=== PATIENT | male | born 1975 | race Caucasian/White ===

== ENCOUNTER 2023-10-05 15:51 | Outpatient (AMB) | payer OTHER, SELFPAY ==
[2023-10-05 16:05] VITALS: BP 152/86; PULSE 110; O2SAT 98; BMI 30.3
--- NOTE | 2023-10-05 16:05 | MHC.PC.OV ---
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 Transferring care from Dr. Gerardo Chung. Medical records have been requested today. 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 Previous PCP was Dr. Jin. Has a past medical history significant for hyperlipidemia, type 2 diabetes. Has a previous history of alcohol use disorder. Has been in treatment and has been sober since last year- 2022. .. Concern--> reports having chest tightness and wheeze when running or doing physical activity. He has not formally been diagnosed with asthma. 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 1. Little interest or pleasure in doing things: not at all 2. Feeling down, depressed, or hopeless: not at all 3. Trouble falling or staying asleep, or sleeping too much: not at all 4. Feeling tired or having little energy: not at all 5. Poor appetite or overeating: not at all 6. Feeling bad about yourself - or that you are a failure or have let yourself or your family down: not at all 7. Trouble concentrating on things, such as reading the newspaper or watching television: not at all 8. Moving or speaking so slowly that other people could have noticed. Or the opposite - being so fidgety or restless that you have been moving around a lot more than usual: not at all 9. Thoughts that you would be better off or of hurting yourself in some way: not at all Total score: 0 Depression Screening Interpretation: Negative Depression Screening Done: Yes 33554 - PHQ-9 Billing: Yes Source: Developed by Drs. Hema Olea, Vanita Blake, Devon Magdaleno and colleagues, with an educational waylon from [employer]. Thrive Questionnaire Date Thrive assessed: 10/05/23 I am a: Patient What is your living situation today?: I have a steady place to live Within the past 12 months, did the food you bought not last and you didn't have the money to get more?: Never true Within the past 12 months, did you worry whether your food would run out before you got money to buy more?: Never true Do you have trouble paying for medicines?: No Do you have trouble getting transportation to medical appointments?: No Do you have trouble paying your heating and electricity bill?: No Do you have trouble taking care of your child, family member or friend?: No Do you have trouble with day-to-day activities such as bathing, preparing meals, shopping, managing finances, etc.?: No Are you currently unemployed and looking for a job?: No Are you interested in more education?: No Please select the resources that you would like help with: None Currently or been in a relationship where the following occur: no concerns reported THRIVE Score: 0 AUDIT C Alcohol Use Questionnaire (AUDIT-C) 1. How often do you have a drink containing alcohol?: Never 3. How often do you have six or more drinks on one occasion?: Never Total Score: 0 THEODORE-7 AMB Questionnaire THEODORE-7 Date THEODORE - 7 assessed: 10/05/23 Feeling nervous, anxious, or on edge: 0 = Not at all Not being able to stop or control worryin = Not at all Worrying too much about different things: 0 = Not at all Trouble relaxin = Not at all Being so restless that it is hard to sit still: 0 = Not at all Becoming easily annoyed or irritable: 0 = Not at all Feeling afraid as if something awful might happen: 0 = Not at all Total THEODORE-7 score (0-4 normal; 5-9 mild; 10-14 moderate; 15-21 severe): 0 Source: Developed by Drs. Hema Olea, Vanita Blake, Devon Magdaleno and colleagues, with an educational waylon from [employer]. THEODORE-7 Assessment Billing THEODORE-7 Assessment Tool: THEODORE-7 Assessment 12167 ACT Questionnaire In the past 4 weeks, how much of the time did your asthma keep you from getting as much done at work, school or at home?: None of the time During the past 4 weeks, how often have you had shortness of breath?: Not at all During the past 4 weeks, how often did your asthma symptoms wake you up at night or earlier than usual in the morning?: Not at all During the past 4 weeks, how often have you had to use your rescue inhaler or nebulizer medication?: Not at all How would you rate your asthma control during the past 4 weeks?: Completely controlled ACT Interpretation: Negative Score: 25 Review of Systems Const Denies headache(s) Eyes Denies loss of vision ENT Denies vertigo, Denies dizziness, Denies headache(s) and Denies sore throat Card Denies chest pain, Denies leg edema and Denies lightheadedness Resp Denies cough, Denies hemoptysis and Denies wheezing GI Denies abdominal pain, Denies melena, Denies constipation, Denies diarrhea and Denies vomiting Denies dysuria, Denies urinary frequency and Denies urinary urgency Musc Denies arthralgias, Denies joint swelling, Denies numbness and Denies tingling Neuro Denies Abnormal speech present, Denies behavioral changes, Denies vertigo, Denies dizziness, Denies headache(s), Denies loss of vision, Denies memory loss, Denies numbness and Denies tingling Psych Denies anxiety, Denies behavioral changes, Denies depression, Denies memory loss and Denies panic attacks Dane/Lymph Denies easy bleeding and Denies easy bruising Aller/Immun Denies wheezing Physical exam (Primary Care) Vital Signs: Last Vital Signs Pulse 110 H 10/05/23 16:05 BP 152/86 H 10/05/23 16:05 Pulse Ox 98 10/05/23 16:05 Oxygen Delivery Method Room Air 10/05/23 16:05 BMI result Body Mass Index 30.3 Tobacco/Smoking Status: Tobacco use Status Tobacco use date assessed 10/05/23 10/05/23 16:12 Patient Tobacco Use Status Never used Tobacco 10/05/23 16:23 e-Cigarette/Vaping Use Never Used 10/05/23 16:23 PHQ-9: PHQ-9 Score PHQ-9: Total score 0 10/05/23 16:18 Depression Screening Interpretation: Negative Thrive Assessment: Date of Thrive Assessment Date Thrive assessed 10/05/23 10/05/23 16:12 Currently or been in a relationship where the following occur: no concerns reported Const General: healthy appearing, no acute distress, alert and awake Nutritional Appearance: well nourished Orientation/consciousness: oriented to person, oriented to place and oriented to time HENMT Ears: TM's normal bilaterally General nose exam: Normal nasal mucous membranes and turbinates present Eyes Conjunctivae: conjunctivae normal Sclerae: sclerae normal Pupils: Equal, round and reactive pupils present Neck Neck: Yes no lymphadenopathy and Yes no JVD Thyroid: Thyroid normal Carotids: no bruits Resp Effort & Inspection: normal respiratory effort and not tachypneic Auscultation: no crackles, no rales, no rhonchi and no wheezes Cardio Rate: regular rate Rhythm: regular rhythm Heart sounds: no murmurs and normal S1 and S2 GI Palpation (GI): Soft to palpation, nontender, no hepatomegaly and no splenomegaly Auscultation: normal bowel sounds Skin General skin exam: no rashes or lesions noted and dry skin Neuro General: oriented to person, oriented to place and oriented to time Cranial nerves: Yes Equal, round and reactive pupils present Speech: No Abnormal speech present Gait exam (Neuro): Normal gait present Motor exam (neuro): no tremor noted Extrem Right upper extremity: full ROM Left upper extremity: full ROM Right lower extremity: full ROM; no edema Left lower extremity: full ROM; no edema Psych Mental Status: mental status grossly normal Speech and movement: Normal speech and movement present Affect: normal affect Attitude: cooperative Thought process: Normal thought process present Assessment and Plan Assessment & Plan (1) HTN (hypertension): Code(s): I10 - Essential (primary) hypertension Qualifiers: Hypertension type: primary hypertension Qualified Code(s): I10 - Essential (primary) hypertension Plan: Patient's blood pressure elevated today in office. Has had elevated blood pressures at other occasions. Not interested in starting blood pressure medication at this time. Will monitor blood pressure at home for the next few months and if still elevated will consider starting hydrochlorothiazide. Goal blood pressures to be below 140/90 (2) HLD (hyperlipidemia): Code(s): E78.5 - Hyperlipidemia, unspecified Qualifiers: Hyperlipidemia type: mixed hyperlipidemia Qualified Code(s): E78.2 - Mixed hyperlipidemia Plan: Labs from 2019 showing elevated total cholesterol and LDL. Will recheck fasting lipid panel to assure stable total cholesterol and LDL. 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 Will recheck A1c to evaluate for diabetes. Will consider starting metformin. (4) Asthma: Code(s): J45.909 - Unspecified asthma, uncomplicated Qualifiers: Asthma complication type: uncomplicated Asthma persistence: intermittent Asthma severity: mild Qualified Code(s): J45.20 - Mild intermittent asthma, uncomplicated Plan: Patient does report wheezing during activity. Likely has sinus induced bronchospasm. Will supply patient with albuterol (5) History of alcohol use disorder: Code(s): Z87.898 - Personal history of other specified conditions Plan: As per HPI reports he has been sober for an alcohol since 2022. Has been in treatment recently Orders: Orders Comprehensive [place]. Panel Fast 10/05/23 I10 - Essential (primary) hypertension Lipid Panel 10/05/23 I10 - Essential (primary) hypertension Hemoglobin A1c 10/05/23 E11.9 - Type 2 diabetes mellitus without complications Microalbumin, Random (w Creat) 10/05/23 I10 - Essential (primary) hypertension Medications: New blood pressure monitor As directed 1 ea 0RF I10 - Essential (primary) hypertension albuterol sulfate 90 mcg/actuation (Ventolin HFA) 1 inh inhalation QID 30 days 8.5 grams 1RF J45.20 - Mild intermittent asthma, uncomplicated Coding Level of Care Code New Pt Level 4 (59902) Diagnoses Primary hypertension I10 Hypertension type: primary hypertension Mixed hyperlipidemia E78.2 Hyperlipidemia type: mixed hyperlipidemia Type 2 diabetes mellitus without complication, without long-term current use of insulin E11.9 Diabetes mellitus complication status: without complication Diabetes mellitus assisted insulin use: without termite control service representative use Mild intermittent asthma without complication J45.20 Asthma complication type: uncomplicated Asthma persistence: intermittent Asthma severity: mild History of alcohol use disorder Z87.898 Additional Codes THEODORE-7 Assessment Billing - THEODORE-7 Assessment Tool: THEODORE-7 Assessment [id number] ([id number])
== END 2023-10-05 16:36 | disposition home or self-care (01) ==
PROVIDERS: PCP Physician Assistant; Visit Provider Physician Assistant
DX: I10 Essential (primary) hypertension (principal); E78.2 Mixed hyperlipidemia; E11.9 Type 2 diabetes mellitus without complications; J45.20 Mild intermittent asthma, uncomplicated; Z87.898 Personal history of other specified conditions
CPT/HCPCS: 99204

== ENCOUNTER 2023-10-14 07:38 | Outpatient (REF) | payer OTHER, SELFPAY ==
[2023-10-14 11:52] LABS: Estimated Average Glucose 301 mg/dL; Hemoglobin A1c % 12.1 % (<6.0)
[2023-10-14 12:07] LABS: Creatinine Urine 66.54 mg/dL; Microalbum/Creatinine Ratio Ur 19.5 ug/mg cr (<30)
[2023-10-14 12:11] LABS: Alanine Aminotransferase 53 U/L (0-40); Albumin Level 4.4 g/dL (3.5-5.0); Alkaline Phosphatase 129 U/L (39-117); Anion Gap 13 (12-20); Aspartate Amino Transferase 17 U/L (5-37); Bilirubin Total 1.1 mg/dL (0.0-1.0); Blood Urea Nitrogen 13 mg/dL (9-16); Calcium 9.6 mg/dL (8.4-10.2); Carbon Dioxide 25 mmol/L (22-29); Chloride 102 mmol/L (96-108); Cholesterol 282 mg/dL (<200); Estimated Glomerular Filt Rate > 60; Glucose Fasting 351 mg/dL (60-99); HDL Cholesterol 40 mg/dL (>40); Potassium 3.8 mmol/L (3.3-5.1); Sodium 136 mmol/L (135-145); Total Protein 7.6 g/dL (6.5-8.0); Triglycerides 431 mg/dL (<150)
== END 2023-10-14 07:39 | disposition home or self-care (01) ==
LOC: HO.HMGCLDS 07:38
PROVIDERS: PCP Physician Assistant; Visit Provider Physician Assistant
DX: I10 Essential (primary) hypertension (principal); E11.9 Type 2 diabetes mellitus without complications
CPT/HCPCS: 36415; 80053; 80061; 82043; 82570; 83036

== ENCOUNTER 2023-12-05 14:18 | Outpatient (AMB) | payer OTHER, SELFPAY ==
--- NOTE | 2023-12-05 14:31 | A.OFFPC_ITS ---
Vital Signs 12/05/23 14:39 Height 6 ft 1 in Weight 227 lb BMI 29.9 BP 142/88 H Blood Pressure Location Lt brachial Position Sitting Respiration 17 Pulse 88 Pulse Source Pulse Oximeter Pulse Oximetry (%) 99 Oxygen Delivery Method Room Air Intake Visit Reasons: PE Intake Note: Patient is here today for a physical. Relay Associate Required: No Accompanied by: Self / Same As Patient Allergies No Known Allergies Allergy (Mild, Verified 12/05/23 14:45) N/A Medication List - Last Reconciled 12/05/23 by Reji Dior PA-C albuterol sulfate 90 mcg/actuation 1 inh inhalation QID PRN 30 days blood pressure monitor As directed metformin 500 mg PO BID 30 days Tobacco use date assessed: 10/05/23 Dental Screening Dental Screen Date: 10/05/23 HPI PE HPI Details Patient is a 48 year male here today for an annual physical. Patient has a past medical history significant for type 2 diabetes, asthma, hyperlipidemia, and history of alcohol use disorder. Concern--> reports having an issue with left-sided sciatica has been referred to physical therapy by the [facility] and will start pretty soon. Also does have right posterior shoulder pain with certain movements. He will ask Physical therapy to see him for his right shoulder as well. Type 2 diabetes: Recently found to have elevated fasting blood sugar and A1c. Was started on metformin 500 b.i.d.. He has received a glucometer from the [facility]. He has spoken with a diabetic counselor whom recommended getting a THEODORE test and start using a glucometer. PLAN: Will start monitoring blood sugars on a daily basis. Will implement a diabetic diet. Will continue metformin 500 BID .. Hyperlipidemia: Most recent lipid panel showing very elevated total cholesterol and triglycerides. Will recheck fasting lipids and if LDL above 100 will advised to start statin therapy. .. Hypertension: Blood pressure remains elevated today in office. Home blood pressures continue to be elevated as well 140s 150 systolic. PLAN: Will start lisinopril for blood pressure control and renal protection. .. Colon cancer screening: Goes to [facility]- did FIT testing and awaiting results. Considering colonoscopy Vaccines: Up-to-date with COVID vaccine, pneumonia vaccine, Needs Tdap Laboratory Tests 09/07/18 09/07/18 10/14/23 11:41 11:41 07:46 Fasting Glucose 136 H 351 H* Hemoglobin A1c 7.2 ALT 53 H Triglycerides 299 Cholesterol 315 282 H LDL Cholesterol, C alc 216 PFSH Surgical History S/P repair of inguinal hernia Social History (Updated 12/05/23 @ 14:49 by Reji Dior PA-C) Housing: House Alcohol intake: former Year quit: 2022 Patient Tobacco Use Status: Never used Tobacco e-Cigarette/Vaping Use: Never Used service: Yes ([employer] [employer]) Current occupational status: employed 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 Hema Olea, Vanita Blake, Devon Magdaleno and colleagues, with an educational waylon from [employer]. ACT Questionnaire In the past 4 weeks, how much of the time did your asthma keep you from getting as much done at work, school or at home?: None of the time During the past 4 weeks, how often have you had shortness of breath?: Not at all During the past 4 weeks, how often did your asthma symptoms wake you up at night or earlier than usual in the morning?: Not at all During the past 4 weeks, how often have you had to use your rescue inhaler or nebulizer medication?: Once a week or less How would you rate your asthma control during the past 4 weeks?: Well controlled ACT Interpretation: Negative Score: 23 Review of Systems Const Denies body aches, Denies chills, Denies excessive sweating, Denies fatigue, Denies fever(s) and Denies headache(s) Eyes Denies blurry vision ENT Denies dysphagia, Denies vertigo, Denies dizziness, Denies headache(s), Denies hearing loss and Denies tinnitus Card Denies chest pain, Denies chest pain with activity, Denies syncope, Denies irregular heart rhythm and Denies dyspnea Resp Denies chest congestion, Denies cough, Denies hemoptysis, Denies dyspnea and Denies wheezing GI Denies abdominal pain, Denies melena, Denies hematochezia, Denies coffee ground emesis, Denies dysphagia, Denies diarrhea, Denies nausea and Denies vomiting Denies difficulty urinating, Denies dysuria, Denies urinary frequency, Denies urinary hesitancy and Denies urinary urgency Musc Denies arthralgias, Denies limited range of motion, Denies muscle cramps and Denies muscle weakness Skin/Breast Denies rash and Denies skin ulcer Neuro Denies Abnormal speech present, Denies confusion, Denies vertigo, Denies dizziness, Denies syncope, Denies headache(s), Denies memory loss and Denies s eizure-like activity Psych Denies anxiety, Denies confusion, Denies depression, Denies memory loss, Denies panic attacks and Denies paranoia Endo Denies excessive sweating, Denies fatigue, Denies flushing, Denies polydipsia and Denies polyuria Aller/Immun Denies wheezing Physical exam (Primary Care) Vital Signs: Last Vital Signs Pulse 88 12/05/23 14:39 Resp 17 12/05/23 14:39 BP 142/88 H 12/05/23 14:39 Pulse Ox 99 12/05/23 14:39 Oxygen Delivery Method Room Air 12/05/23 14:39 BMI result Body Mass Index 29.9 Tobacco/Smoking Status: Tobacco use Status Tobacco use date assessed 10/05/23 12/05/23 14:33 Patient Tobacco Use Status Never used Tobacco 12/05/23 14:49 e-Cigarette/Vaping Use Never Used 12/05/23 14:49 Thrive Assessment: Date of Thrive Assessment Date Thrive assessed 10/05/23 12/05/23 14:33 Const General: cooperative, comfortable, no acute distress, alert and awake; No confusion Orientation/consciousness: oriented to person, oriented to place, patient oriented x3 and No confusion HENMT Head: Yes normocephalic Ears: external ears normal and TM's normal bilaterally Face and sinus: No sinus tenderness Mouth: Normal oral and palatal mucosa present and tongue normal Teeth and gingiva: dentition normal and gingiva normal Throat: Yes posterior oropharynx normal, Yes tonsils normal and Yes uvula midline Eyes Conjunctivae: conjunctivae normal Sclerae: sclerae normal Pupils: Equal, round and reactive pupils present EOM: EOMs intact bilaterally Direct Ophthalmoscopy: No no photophobia Neck Neck: Yes no lymphadenopathy, No tender and Yes no JVD Thyroid: Thyroid normal Carotids: no bruits Chest Chest palpation & inspection: no tenderness Resp Effort & Inspection: normal respiratory effort, no audible wheezes, not labored and no stridor Auscultation: no crackles, no rales, no rhonchi and no wheezes Cardio Jugular venous distension: no JVD Rate: regular rate, not bradycardic and not tachycardic Rhythm: regular rhythm Bruits: no carotid bruits Peripheral pulses: Peripheral pulses 2+ throughout GI Inspection: Yes normal to inspection, No abdominal wall ecchymosis and No visible herniation Palpation (GI): Soft to palpation, nontender, no guarding, not rigid and No hepatosplenomegaly present Auscultation: normoactive bowel sounds General: Yes no CVA tenderness Back/Spine/Pelvis Back: no CVA tenderness and No back tenderness Cervical Spine: cervical ROM normal Thoracic/Lumbar Spine: thoracic and lumbar spine normal to inspection, straight leg raise negative bilaterally, No thoraco-lumbar ROM limited and No lumbar spinal tenderness Skin Lesions: no lesions Rashes: no rashes Wounds: no wounds Neuro General: oriented to person, oriented to place, patient oriented x3, CN's II-XI intact bilaterally and No confusion Cranial nerves: Yes Equal, round and reactive pupils present and Yes Normal accommodation reflex present Cognition (Neuro): normal cognition Speech: No Abnormal speech present Gait exam (Neuro): Normal gait present Motor exam (neuro): 5/5 motor strength present throughout Extrem Right upper extremity: full ROM; no cyanosis Left upper extremity: full ROM; no cyanosis Right lower extremity: no edema Left lower extremity: no edema Psych Appearance: grossly normal Mental Status: mental status grossly normal Affect: normal affect Attitude: cooperative Thought process: Normal thought process present Immunizations Boostrix Tdap 2.5 Lf unit-8 mcg-5 Lf/0.5 mL intramuscular syringe Performing Provider: Reji Dior PA-C Performing Location: [facility] Administered by: YUE oRberts on 12/05/23 15:11 Dose Route Admin Location Dispensed Lot Number Expiration Date NDC Treasury Specialist 0.5 mL IM Left Deltoid 0.5 mL [id number] 01/07/26 03501-573-86 [employer] VIS Given Date VIS Provided VIS Publication Date 12/05/23 Single Vaccine 21 Eligibility Eligibility Date Funding Source Not VFC Eligible 12/05/23 Private Assessment and Plan Assessment & Plan (1) Annual physical exam: Code(s): Z00.00 - Encounter for general adult medical examination without abnormal findings (2) DMII (diabetes mellitus, type 2): Code(s): E11.9 - Type 2 diabetes mellitus without complications Qualifiers: Diabetes mellitus complication status: without complication Diabetes mellitus manager gallery insulin use: without fci use Qualified Code(s): E11.9 - Type 2 diabetes mellitus without complications Plan: Patient has uncontrolled type 2 diabetes. Been started on metformin 500 b.i.d.. Has started using a glucometer check his blood sugars at home and reports a b lood sugar 190. Will recheck fasting labs and A1c before next visit in 3 months. Goal A1c is to be below 7.0 (3) HTN (hypertension): Code(s): I10 - Essential (primary) hypertension Qualifiers: Hypertension type: primary hypertension Qualified Code(s): I10 - Essential (primary) hypertension Plan: Patient's blood pressure elevated today in office. At home blood pressures 140s to 150 systolic. Will start lisinopril 5 mg for renal protection and blood pressure control. Goal blood pressures to be below 140/90. (4) HLD (hyperlipidemia): Code(s): E78.5 - Hyperlipidemia, unspecified Qualifiers: Hyperlipidemia type: mixed hyperlipidemia Qualified Code(s): E78.2 - Mixed hyperlipidemia Plan: Most recent lipid panel showing elevated total cholesterol and triglycerides. LDL was not calculated. Will recheck lipid panel in the next 3 months. LDL is to be below 100. (5) Sciatica: Code(s): M54.30 - Sciatica, unspecified side Qualifiers: Laterality: left Qualified Code(s): M54.32 - Sciatica, left side Plan: Will be starting physical therapy soon. (6) Tendinopathy of right shoulder: Code(s): M67.911 - Unspecified disorder of synovium and tendon, right shoulder Plan: Reports injuring his right shoulder months ago and does report posterior right shoulder pain depending on what moving sees doing with his right shoulder. He will ask Physical therapy on treatment for this (7) Asthma: Code(s): J45.909 - Unspecified asthma, uncomplicated Qualifiers: Asthma severity: mild Asthma persistence: intermittent Asthma complication type: uncomplicated Qualified Code(s): J45.20 - Mild intermittent asthma, uncomplicated Plan: Patient reports his asthma is fairly well controlled with only p.r.n. use of his albuterol inhaler. Does use his albuterol inhaler before physical activity as he has mostly exercise-induced asthma. Orders: Orders Lipid Panel 12/05/23 E78.2 - Mixed hyperlipidemia Glutamic acid decarboxylase Ab 12/05/23 E11.9 - Type 2 diabetes mellitus without complications TDaP Immunization 12/05/23 E11.9 - Type 2 diabetes mellitus without complications, Z23 - Encounter for immunization TSH reflex Free T4 12/05/23 E78.2 - Mixed hyperlipidemia Comprehensive [place]. Panel Fast 12/05/23 E11.9 - Type 2 diabetes mellitus without complications Hemoglobin A1c 12/05/23 E11.9 - Type 2 diabetes mellitus without complications Microalbumin, Random (w Creat) 12/05/23 I10 - Essential (primary) hypertension Medications: New lisinopril 5 mg PO DAILY 90 days 90 tabs 1RF I10 - Essential (primary) hypertension Coding Level of Care Code Est Pt Prev Care 40-64y(22803) Diagnoses Annual physical exam Z00.00 Type 2 diabetes mellitus without complication, without long-term current use of insulin E11.9 Diabetes mellitus complication status: without complication Diabetes mellitus manager gallery insulin use: without manager gallery use Primary hypertension I10 Hypertension type: primary hypertension Mixed hyperlipidemia E78.2 Hyperlipidemia type: mixed hyperlipidemia Sciatica of left side M54.32 Laterality: left Tendinopathy of right shoulder M67.911 Mild intermittent asthma without complication J45.20 Asthma severity: mild Asthma persistence: intermittent Asthma complication type: uncomplicated
[2023-12-05 14:39] VITALS: BP 142/88; PULSE 88; RESP 17; O2SAT 99; BMI 29.9
== END 2023-12-05 15:08 | disposition home or self-care (01) ==
PROVIDERS: PCP Physician Assistant; Visit Provider Physician Assistant
DX: Z23 Encounter for immunization (principal); E11.9 Type 2 diabetes mellitus without complications
CPT/HCPCS: 90471; 90715; 99396

== ENCOUNTER 2024-03-03 07:19 | Outpatient (REF) | payer OTHER, SELFPAY ==
[2024-03-03 11:33] LABS: Estimated Average Glucose 186 mg/dL; Hemoglobin A1c % 8.1 % (<6.0)
[2024-03-03 11:45] LABS: Alanine Aminotransferase 57 U/L (0-40); Albumin Level 4.3 g/dL (3.5-5.0); Alkaline Phosphatase 85 U/L (39-117); Anion Gap 11 (12-20); Aspartate Amino Transferase 21 U/L (5-37); Bilirubin Total 1.6 mg/dL (0.0-1.0); Blood Urea Nitrogen 11 mg/dL (9-16); Calcium 9.4 mg/dL (8.4-10.2); Carbon Dioxide 27 mmol/L (22-29); Chloride 104 mmol/L (96-108); Cholesterol 218 mg/dL (<200); Estimated Glomerular Filt Rate > 60; Glucose Fasting 217 mg/dL (60-99); HDL Cholesterol 45 mg/dL (>40); LDL Cholesterol Calculated 134 mg/dL (<100); Potassium 4.3 mmol/L (3.3-5.1); Sodium 138 mmol/L (135-145); Total Protein 6.9 g/dL (6.5-8.0); Triglycerides 197 mg/dL (<150)
[2024-03-03 11:52] LABS: Microalbumin Urine < 5.0 mg/L
[2024-03-03 12:08] LABS: TSH reflex Free T4 0.88 uIU/mL (0.32-4.0)
[2024-03-07 16:18] LABS: Glutamic acid decarboxylase Ab <5 IU/mL (<5)
== END 2024-03-03 07:20 | disposition home or self-care (01) ==
LOC: HO.HMGCLDS 07:19
PROVIDERS: PCP Physician Assistant; Visit Provider Physician Assistant
DX: E78.2 Mixed hyperlipidemia (principal); E11.9 Type 2 diabetes mellitus without complications; I10 Essential (primary) hypertension
CPT/HCPCS: 36415; 80053; 80061; 82570; 83036; 84443; 86341

== ENCOUNTER 2024-03-06 08:39 | Outpatient (AMB) | payer OTHER, SELFPAY ==
--- NOTE | 2024-03-06 08:48 | A.OFFPC_ITS ---
Vital Signs 03/06/24 08:50 Height 6 ft 1 in Weight 228 lb 4 oz BMI 30.1 BP 112/82 Blood Pressure Location Lt brachial Position Sitting Pulse 83 Pulse Source Pulse Oximeter Pulse Oximetry (%) 98 Oxygen Delivery Method Room Air Intake Visit Reasons: f/u DMII Intake Note: Patient is here to follow up on DM HTN. Pattern Fitter Required: No Carbonizer: Not Required per policy Accompanied by: Self / Same As Patient Allergies No Known Allergies Allergy (Mild, Verified 03/06/24 08:57) N/A Medication List - Last Reconciled 03/06/24 by Reji Dior PA-C albuterol sulfate 90 mcg/actuation 1 inh inhalation QID PRN 30 days blood pressure monitor As directed lisinopril 5 mg PO DAILY 90 days metformin 500 mg PO BID 30 days Tobacco use date assessed: 03/06/24 Dental Screening Dental Screen Date: 10/05/23 HPI f/u DMII HPI Details Patient is a 48 year male here today for follow-up visit. Patient has a past medical history significant for type 2 diabetes, asthma, hyperlipidemia, and history of alcohol use disorder Type 2 diabetes: Most recent A1c at 8.1. Continues on metformin 500 b.i.d. [facility] He has spoken with a diabetic counselor whom recommended getting a THEODORE test and start using a glucometer. PLAN: Will continue to try to be more adherent with afternoon dose of m etformin. .. Hyperlipidemia: Most recent lipid panel showing much improved total cholesterol and LDL. Unfortunately LDL remains above 100. Will start low-dose statin therapy. .. Hypertension: Blood pressure much improved today in office. Continue current dose of lisinopril. 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 Hema Olea, Vanita Blake, Devon Magdaleno and colleagues, with an educational waylon from [employer]. Review of Systems Const Denies headache(s) Eyes Denies loss of vision ENT Denies vertigo, Denies dizziness, Denies headache(s) and Denies sore throat Card Denies chest pain, Denies leg edema and Denies lightheadedness Resp Denies cough, Denies hemoptysis and Denies wheezing GI Denies abdominal pain, Denies melena, Denies constipation, Denies diarrhea and Denies vomiting Denies dysuria, Denies urinary frequency and Denies urinary urgency Musc Denies arthralgias, Denies joint swelling, Denies numbness and Denies tingling Neuro Denies Abnormal speech present, Denies behavioral changes, Denies vertigo, Denies dizziness, Denies headache(s), Denies loss of vision, Denies memory loss, Denies numbness and Denies tingling Psych Denies anxiety, Denies behavioral changes, Denies depression, Denies memory loss and Denies panic attacks Dane/Lymph Denies easy bleeding and Denies easy bruising Aller/Immun Denies wheezing Physical exam (Primary Care) Vital Signs: Last Vital Signs Pulse 83 03/06/24 08:50 BP 112/82 03/06/24 08:50 Pulse Ox 98 03/06/24 08:50 Oxygen Delivery Method Room Air 03/06/24 08:50 BMI result Body Mass Index 30.1 Tobacco/Smoking Status: Tobacco use Status Tobacco use date assessed 03/06/24 03/06/24 08:54 Patient Tobacco Use Status Never used Tobacco 03/06/24 08:54 e-Cigarette/Vaping Use Never Used 03/06/24 08:54 Thrive Assessment: Date of Thrive Assessment Date Thrive assessed 10/05/23 03/06/24 08:54 Const General: healthy appearing, no acute distress, alert and awake Nutritional Appearance: well nourished Orientation/consciousness: oriented to person, oriented to place and oriented to time HENMT Ears: TM's normal bilaterally General nose exam: Normal nasal mucous membranes and turbinates present Eyes Conjunctivae: conjunctivae normal Sclerae: sclerae normal Pupils: Equal, round and reactive pupils present Neck Neck: Yes no lymphadenopathy and Yes no JVD Thyroid: Thyroid normal Carotids: no bruits Resp Effort & Inspection: normal respiratory effort and not tachypneic Auscultation: no crackles, no rales, no rhonchi and no wheezes Cardio Rate: regular rate Rhythm: regular rhythm Heart sounds: no murmurs and normal S1 and S2 GI Palpation (GI): Soft to palpation, nontender, no hepatomegaly and no splenomegaly Auscultation: normal bowel sounds Skin General skin exam: no rashes or lesions noted and dry skin Neuro General: oriented to person, oriented to place and oriented to time Cranial nerves: Yes Equal, round and reactive pupils present Speech: No Abnormal speech present Gait exam (Neuro): Normal gait present Motor exam (neuro): no tremor noted Extrem Right upper extremity: full ROM Left upper extremity: full ROM Right lower extremity: full ROM; no edema Left lower extremity: full ROM; no edema Psych Mental Status: mental status grossly normal Speech and movement: Normal speech and movement present Affect: normal affect Attitude: cooperative Thought process: Normal thought process present Assessment and Plan Assessment & Plan (1) DMII (diabetes mellitus, type 2): Code(s): E11.9 - Type 2 diabetes mellitus without complications Qualifiers: Diabetes mellitus supervisor intermediates insulin use: without supervisor intermediates use Diabetes mellitus complication status: without complication Qualified Code(s): E11.9 - Type 2 diabetes mellitus without complications Plan: Patient has suboptimally controlled, though A1c much improved at 8.1 from 12.1. Continues on metformin 500 b.i.d.. Has started using a glucometer check his blood sugars at home and reports a blood sugar 190. He does report often missing his afternoon dose of metformin. Will recheck fasting labs and A1c before next visit in 3 months. Goal A1c is to be below 7.0 (2) HTN (hypertension): Code(s): I10 - Essential (primary) hypertension Qualifiers: Hypertension type: primary hypertension Qualified Code(s): I10 - Essential (primary) hypertension Plan: Blood pressure much improved today in office. Continues on lisinopril 5 mg daily l. Goal blood pressures to be below 140/90. (3) HLD (hyperlipidemia): Code(s): E78.5 - Hyperlipidemia, unspecified Qualifiers: Hyperlipidemia type: mixed hyperlipidemia Qualified Code(s): E78.2 - Mixed hyperlipidemia Plan: Most recent fasting lipid panel showing much improved total cholesterol and LDL. LDL still above 100 thus will start low-dose simvastatin 5 mg for goal LDL to be below 100. Will recheck lipid panel in the next 3 months. Orders: Orders Complete Blood Count no Diff 3 Months E11.9 - Type 2 diabetes mellitus without complications Lipid Panel 3 Months E78.2 - Mixed hyperlipidemia Comprehensive [place]. Panel Fast 3 Months E11.9 - Type 2 diabetes mellitus without complications Medications: New simvastatin 5 mg PO DAILY 90 days 90 tabs 1RF E78.2 - Mixed hyperlipidemia Patient Instructions: Goal: A1c to be below 7.0, LDL to be below 100, blood pressure to be below 140/90 Barriers: Adherence to medication and healthy eating habits. Coding Level of Care Code Est Pt Level 4 (79894) Complex EM visit Add On [id number] Diagnoses Type 2 diabetes mellitus without complication, without long-term current use of insulin E11.9 Diabetes mellitus supervisor intermediates insulin use: without supervisor intermediates use Diabetes mellitus complication status: without complication Primary hypertension I10 Hypertension type: primary hypertension Mixed hyperlipidemia E78.2 Hyperlipidemia type: mixed hyperlipidemia
[2024-03-06 08:50] VITALS: BP 112/82; PULSE 83; O2SAT 98; BMI 30.1
== END 2024-03-06 09:09 | disposition home or self-care (01) ==
PROVIDERS: PCP Physician Assistant; Visit Provider Physician Assistant
DX: E11.9 Type 2 diabetes mellitus without complications (principal); I10 Essential (primary) hypertension; E78.2 Mixed hyperlipidemia
CPT/HCPCS: 99214; G2211

== ENCOUNTER 2024-06-04 09:09 | Outpatient (REF) | payer OTHER, SELFPAY ==
[2024-06-04 10:35] LABS: Hematocrit 45.8 % (42.0-52.0); Hemoglobin 16.2 g/dl (14.0-18.0); Mean Corpuscular HGB Conc 35.4 g/dl (31.0-36.0); Mean Corpuscular Hemoglobin 31.6 pg (27.0-33.0); Mean Corpuscular Volume 89.3 fL (80.0-98.0); Mean Platelet Volume 9.6 fL (9.4-12.4); Platelet Count 281 X10*3/uL (160-400); Red Blood Count 5.13 X10*6/uL (4.60-5.80); Red Cell Distribution Width 11.6 % (11.0-16.0); White Blood Count 6.5 X10*3/uL (4.8-10.8)
[2024-06-04 11:13] LABS: Alanine Aminotransferase 50 U/L (0-40); Albumin Level 4.4 g/dL (3.5-5.0); Alkaline Phosphatase 100 U/L (39-117); Anion Gap 14 (12-20); Aspartate Amino Transferase 16 U/L (5-37); Bilirubin Total 1.2 mg/dL (0.0-1.0); Blood Urea Nitrogen 10 mg/dL (9-16); Calcium 9.2 mg/dL (8.4-10.2); Carbon Dioxide 26 mmol/L (22-29); Chloride 101 mmol/L (96-108); Cholesterol 281 mg/dL (<200); Estimated Glomerular Filt Rate > 60; Glucose Fasting 283 mg/dL (60-99); HDL Cholesterol 45 mg/dL (>40); Sodium 137 mmol/L (135-145); Total Protein 7.3 g/dL (6.5-8.0); Triglycerides 433 mg/dL (<150)
== END 2024-06-04 09:10 | disposition home or self-care (01) ==
LOC: HO.HMGCLDS 09:09
PROVIDERS: PCP Physician Assistant; Visit Provider Physician Assistant
DX: E78.2 Mixed hyperlipidemia (principal); E11.9 Type 2 diabetes mellitus without complications
CPT/HCPCS: 36415; 80053; 80061; 85027

== ENCOUNTER 2024-06-06 08:53 | Outpatient (AMB) | payer OTHER, SELFPAY ==
[2024-06-06 09:20] VITALS: BP 154/96; PULSE 82; O2SAT 98; BMI 30.8
--- NOTE | 2024-06-06 09:20 | A.OFFPC_ITS ---
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 Patient has a past medical history significant for type 2 diabetes, asthma, hyperlipidemia, and history of alcohol use disorder Type 2 diabetes: Today's when A1c elevated at 10.0 from 8.1 Continues on metformin 500 b.i.d. recent labs showing very elevated fasting blood sugar. HE ADMITS TO DIETARY INDISCRETION AND BEING MORE SEDENTARY OVER THE LAST FEW MONTHS. [facility] He has spoken with a diabetic counselor whom recommended getting a THEODORE test and start using a glucometer. PLAN: Will increase his metformin dose to a 1000 in the a.m. and continue 500 the p.m.. .. Hyperlipidemia: Most recent lipid panel showing elevated total cholesterol triglycerides.. Unfortunately LDL remains above 100. PLAN: Will increase his simvastatin dose to 10 mg .. Hypertension: Blood pressure much elevated today in office. He reports that home blood pressures are 120s to 130 systolic. Continue current dose of lisinopril. Laboratory Tests 09/07/18 10/14/23 03/03/24 11:41 07:46 07:30 RBC Hgb Fasting Glucose 351 H* 217 H Hemoglobin A1c % 12.1 H 8.1 H ALT 53 H 57 H Alkaline Phosphata se 129 H 85 LDL Cholesterol, C alc 216 134 H Triglycerides 197 H Cholesterol 282 H 218 H TSH 0.88 Urine Microalbumin < 5.0 06/04/24 09:18 RBC 5.13 Hgb 16.2 Fasting Glucose 283 H Hemoglobin A1c % ALT Alkaline Phosphata se LDL Cholesterol, C alc Triglycerides 433 H Cholesterol 281 H TSH Urine Microalbumin PFSH Surgical History S/P repair of inguinal hernia Social History Housing: House Alcohol intake: current Alcohol intake frequency: a few times a month Patient Tobacco Use Status: Never used Tobacco e-Cigarette/Vaping Use: Never Used Second Hand Smoke Exposure: No service: Yes ([employer]) Current occupational status: employed 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 1. Little interest or pleasure in doing things: not at all 2. Feeling down, depressed, or hopeless: not at all 3. Trouble falling or staying asleep, or sleeping too much: not at all 4. Feeling tired or having little energy: not at all 5. Poor appetite or overeating: not at all 6. Feeling bad about yourself - or that you are a failure or have let yourself or your family down: not at all 7. Trouble concentrating on things, such as reading the newspaper or watching television: not at all 8. Moving or speaking so slowly that other people could have noticed. Or the opposite - being so fidgety or restless that you have been moving around a lot more than usual: not at all 9. Thoughts that you would be better off or of hurting yourself in some way: not at all Total score: 0 Depression Screening Interpretation: Negative Depression Screening Done: Yes 73906 - PHQ-9 Billing: Yes Source: Developed by Drs. Hema Olea, Vanita Blake, Devon Magdaleno and colleagues, with an educational waylon from [employer]. Thrive Questionnaire Date Thrive assessed: 06/06/24 I am a: Patient What is your living situation today?: I have a steady place to live Within the past 12 months, did the food you bought not last and you didn't have the money to get more?: Never true Within the past 12 months, did you worry whether your food would run out before you got money to buy more?: Never true Do you have trouble paying for medicines?: No Do you have trouble getting transportation to medical appointments?: No Do you have trouble paying your heating and electricity bill?: No Do you have trouble taking care of your child, family member or friend?: No Do you have trouble with day-to-day activities such as bathing, preparing meals, shopping, managing finances, etc.?: No Are you currently unemployed and looking for a job?: No Are you interested in more education?: No Currently or been in a relationship where the following occur: No concerns reported THRIVE Score: 0 AUDIT C Alcohol Use Questionnaire (AUDIT-C) 1. How often do you have a drink containing alcohol?: Never 3. How often do you have six or more drinks on one occasion?: Never Total Score: 0 THEODORE-7 AMB Questionnaire THEODORE-7 Date THEODORE - 7 assessed: 06/06/24 Feeling nervous, anxious, or on edge: 0 = Not at all Not being able to stop or control worryin = Not at all Worrying too much about different things: 0 = Not at all Trouble relaxin = Not at all Being so restless that it is hard to sit still: 0 = Not at all Becoming easily annoyed or irritable: 0 = Not at all Feeling afraid as if something awful might happen: 0 = Not at all Total THEODORE-7 score (0-4 normal; 5-9 mild; 10-14 moderate; 15-21 severe): 0 Source: Developed by Drs. Hema Olea, Vanita Blake, Devon Magdaleno and colleagues, with an educational waylon from [employer]. THEODORE-7 Assessment Billing THEODORE-7 Assessment Tool: THEODORE-7 Assessment 38999 Review of Systems Const Denies headache(s) Eyes Denies loss of vision ENT Denies vertigo, Denies dizziness, Denies headache(s) and Denies sore throat Card Denies chest pain, Denies leg edema and Denies lightheadedness Resp Denies cough, Denies hemoptysis and Denies wheezing GI Denies abdominal pain, Denies melena, Denies constipation, Denies diarrhea and Denies vomiting Denies dysuria, Denies urinary frequency and Denies urinary urgency Musc Denies arthralgias, Denies joint swelling, Denies numbness and Denies tingling Neuro Denies Abnormal speech present, Denies behavioral changes, Denies vertigo, Denies dizziness, Denies headache(s), Denies loss of vision, Denies memory loss, Denies numbness and Denies tingling Psych Denies anxiety, Denies behavioral changes, Denies depression, Denies memory loss and Denies panic attacks Dane/Lymph Denies easy bleeding and Denies easy bruising Aller/Immun Denies wheezing Physical exam (Primary Care) Vital Signs: Last Vital Signs Pulse 82 06/06/24 09:20 BP 154/96 H 06/06/24 09:20 Pulse Ox 98 06/06/24 09:20 Oxygen Delivery Method Room Air 06/06/24 09:20 BMI result Body Mass Index 30.8 Tobacco/Smoking Status: Tobacco use Status Tobacco use date assessed 03/06/24 06/06/24 09:20 Patient Tobacco Use Status Never used Tobacco 06/06/24 09:20 e-Cigarette/Vaping Use Never Used 06/06/24 09:20 PHQ-9: PHQ-9 Score PHQ-9: Total score 0 06/06/24 09:23 Depression Screening Interpretation: Negative Thrive Assessment: Date of Thrive Assessment Date Thrive assessed 06/06/24 06/06/24 09:23 Currently or been in a relationship where the following occur: No concerns reported Const General: healthy appearing, no acute distress, alert and awake Nutritional Appearance: well nourished Orientation/consciousness: oriented to person, oriented to place and oriented to time HENAL Ears: TM's normal bilaterally General nose exam: Normal nasal mucous membranes and turbinates present Eyes Conjunctivae: conjunctivae normal Sclerae: sclerae normal Pupils: Equal, round and reactive pupils present Neck Neck: Yes no lymphadenopathy and Yes no JVD Thyroid: Thyroid normal Carotids: no bruits Resp Effort & Inspection: normal respiratory effort and not tachypneic Auscultation: no crackles, no rales, no rhonchi and no wheezes Cardio Rate: regular rate Rhythm: regular rhythm Heart sounds: no murmurs and normal S1 and S2 GI Palpation (GI): Soft to palpation, nontender, no hepatomegaly and no splenomegaly Auscultation: normal bowel sounds Skin General skin exam: no rashes or lesions noted and dry skin Neuro General: oriented to person, oriented to place and oriented to time Cranial nerves: Yes Equal, round and reactive pupils present Speech: No Abnormal speech present Gait exam (Neuro): Normal gait present Motor exam (neuro): no tremor noted Extrem Right upper extremity: full ROM Left upper extremity: full ROM Right lower extremity: full ROM; no edema Left lower extremity: full ROM; no edema Psych Mental Status: mental status grossly normal Speech and movement: Normal speech and movement present Affect: normal affect Attitude: cooperative Thought process: Normal thought process present Results AMB Hemoglobin A1c AMB Hemoglobin A1c 10.0 % Last Edit by YUE Roberts on 06/06/24 09:25 Results Reviewed Results Reviewed: Laboratory Last Values Hgb A1c (Clinic) 10.0 % (4.0-6.0) H 06/06/24 09:21 Coding Level of Care Code Est Pt Level 4 (59655) Diagnoses Type 2 diabetes mellitus without complication, without long-term current use of insulin E11.9 Diabetes mellitus complication status: without complication Diabetes mellitus senior care insulin use: without senior care use Primary hypertension I10 Hypertension type: primary hypertension Mixed hyperlipidemia E78.2 Hyperlipidemia type: mixed hyperlipidemia Additional Codes THEODORE-7 Assessment Billing - THEODORE-7 Assessment Tool: THEODORE-7 Assessment [id number] ([id number]) Assessment & Plan Assessment & Plan (1) DMII (diabetes mellitus, type 2): Code(s): E11.9 - Type 2 diabetes mellitus without complications Category: Medical Qualifiers: Diabetes mellitus complication status: without complication Diabetes mellitus intermediate card tender insulin use: without intermediate card tender use Qualified Code(s): E11.9 - Type 2 diabetes mellitus without complications Plan: Patient's type 2 diabetes not well controlled. Today's A1c elevated at 10 from 8.1. He reports dietary indiscretion and being more sedentary over last few months. Will increase metformin to a 1000 mg in the daytime and 500 at night. He will work on lifestyle modification. Goal A1c is to be below 7.0 (2) HTN (hypertension): Code(s): I10 - Essential (primary) hypertension Category: Medical Qualifiers: Hypertension type: primary hypertension Qualified Code(s): I10 - Essential (primary) hypertension Plan: Patient's blood pressure elevated today in office. He reports that home blood pressures are stable. He continues with lisinopril 5 mg daily. Goal blood pressures to remain below 140/90 (3) HLD (hyperlipidemia): Code(s): E78.5 - Hyperlipidemia, unspecified Category: Medical Qualifiers: Hyperlipidemia type: mixed hyperlipidemia Qualified Code(s): E78.2 - Mixed hyperlipidemia Plan: Patient's most recent lipid panel showing elevated total cholesterol and triglycerides. Will increase his simvastatin to 10 mg for better cholesterol control. He did admit to dietary indiscretion and will try to work on dietary modifications. Goal LDL is to be below 100 Orders: Orders Microalbumin, Random (w Creat) 4 Months I10 - Essential (primary) hypertension Comprehensive [place]. Panel Fast 4 Months I10 - Essential (primary) hypertension Hemoglobin A1c 4 Months E11.9 - Type 2 diabetes mellitus without complications AMB Hemoglobin A1c Today E11.9 - Type 2 diabetes mellitus without complications Lipid Panel 4 Months E78.2 - Mixed hyperlipidemia Complete Blood Count no Diff 4 Months I10 - Essential (primary) hypertension Referrals Ophthalmology Referral E11.9 - Type 2 diabetes mellitus without complications Medications: New simvastatin 10 mg PO DAILY 90 tabs 1RF 90 days E78.2 - Mixed hyperlipidemia Changed From metformin 500 mg PO BID 30 days 60 tabs 3RF E11.9 - Type 2 diabetes mellitus without complications To metformin 500 mg PO TID 90 tabs 3RF 30 days E11.9 - Type 2 diabetes mellitus without complications Discontinued simvastatin Discontinued Reason: Doctor's Order 5 mg PO DAILY 90 days 90 tabs 1RF E78 .2 - Mixed hyperlipidemia Patient Instructions: Goal: A1c to be below 7.0, LDL to be below 100 Barriers: Adherence to physical activity and healthy eating habits
== END 2024-06-06 09:36 | disposition home or self-care (01) ==
PROVIDERS: PCP Physician Assistant; Visit Provider Physician Assistant
DX: E11.9 Type 2 diabetes mellitus without complications (principal)

== ENCOUNTER → 2024-06-06 08:53 | Outpatient (BNVA) | payer OTHER, SELFPAY | PROVIDERS: PCP Physician Assistant; Visit Provider Physician Assistant | DX: E11.9 Type 2 diabetes mellitus without complications (principal); I10 Essential (primary) hypertension; E78.2 Mixed hyperlipidemia | CPT/HCPCS: 83036; 96127; 99212 ==

== ENCOUNTER 2024-12-05 07:48 | Outpatient (AMB) | payer OTHER, SELFPAY ==
--- OUTSIDE RECORDS SUMMARY | 2024-12-05 07:52 | XMS_ITS | Continuity of Care Document ---
Author Name [facility] Organization [facility] Care Team Providers [facility] Name Role Phone [facility] Unavailable Unavailable Problems Combined list of problems from Department of Defense and Veterans Affairs facilities. It does not include entries that were removed or entered in error. Problem Status Onset Date Problem Type Date of Resolution Comments Source Erectile dysfunction Active Condition [facility] Exercise induced asthma Active Condition [facility] Exposure to potentially hazardous substance Active Condition Nov 18, 2023 Entered By: LUL GALLARDO Comment: exercise-induc ed asthma [facility] [place] - Generalized anxiety disorder Active Condition [facility] History of Alcohol Abuse ([facility] [id number]) Active Condition Nov 18, 2023 Entered By: LUL GALLARDO Comment: quit 2024 Entered By: LUL GALLARDO Comment: 11/15/24 rare alcohol use [facility] Inguinal hernia Active Condition Nov 18, 2023 Entered By: LUL GALLARDO Comment: s/p repair 2007 [facility] Lumbago with sciatica Active Condition Nov 18, 2023 Entered By: LUL GALLARDO Comment: sciatica BLE [facility] Mixed hyperlipidaemia Active Condition [facility] Tinnitus Active Condition Nov 17 Entered By: LUL GALLARDO Comment: Right ear, intermittent with mild hearing loss. Hx noise exposure in service [facility] Type II diabetes mellitus uncontrolled Active Condition Nov 15, 2024 Entered By: LUL GALLARDO Comment: 12/19/23 A1c 9.5Nov 15, 2024 Entered By: LUL GALLARDO Comment: 11/15/24 per patient A1c in June was around 8 Nov 15, 2024 Entered By: LUL GALLARDO Comment: working with diabetic educatorNov 15, 2024 Entered By: LUL GALLARDO Comment: [facility] Under care of multiple providers Active Condition Nov 17, 2 024 Entered By: LUL GALLARDO Comment: community PCP TONY Valerio [facility] Ankle sprain Inactive Condition 11/18/2023 [facility] Fracture of hand Inactive Condition 11/18/2023 Ma r 2023 Entered By: LUL GALLARDO Comment: nonsurgical, casted only [facility] [place] [facility] Diagnosis: ICD-10-CM E66.09 Other obesity due to excess calories Active Diagnosis [facility] Diagnosis: ICD-10-CM E11.8 Type 2 diabetes mellitus with unspecified complications Active Diagnosis [facility] ([id number]) Diagnosis: ICD-10-CM M54.40 Lumbago with sciatica, unspecified side Active Diagnosis [facility] Diagnosis: ICD-10-CM F43.22 Adjustment disorder with anxiety Active Diagnosis [facility] Diagnosis: ICD-10-CM Z51.81 Encounter for therapeutic drug level monitoring Active Diagnosis [facility] Diagnosis: ICD-10-CM Z71.89 Other specified counseling Active Diagnosis [facility] [facility] Medications Combined list of outpatient medications from Department of Defense and Veterans Affairs facilities.Medications provided include 1) outpatient medications from the last 15 months, and 2) patient-reported medications. Medication Details Route Status Patient Instructions Prescription Expires Prescription Number Last Dispense Date Ordering Provider Order Date Order Qty Source ALBUTEROL 90MCG/ACTUA T (CFC-F) INHL,ORAL,8 .5GM DOSE COUNTER INHALE 1 PUFF BY MOUTH EVERY 6 HOURS NEEDED RESPIR ATORY (INHAL ATION) ACTIVE Derrick GALLARDO 2023 IELD METFORMIN HCL 500MG TAB TAKE ONE TABLET BY MOUTH TWICE DAILY ORAL ACTIVE Derrick GALLARDO 2023 IELD SILDENAFIL CITRATE 50MG TAB TAKE ONE TABLET BY MOUTH ONCE DAILY NEEDED FOR ERECTILE DYSFUNCT ION TAKE 1 HOUR PRIOR TO SEXUAL ACTIVITY ORAL ACTIVE 11/16/2025 [id number] Derrick GALLARDO 2024 18 [facility] IELD Immunizations Combined list of available immunizations from the Department of Defense and Veterans Affairs facilities. Immunization Series Date Given Administered By Site Reaction Lot Number CVX Code Drug [employer] Manager Status Comments Source INFLUENZA, UNSPECIFIED FORMULATION 2022 88 complet ed [facility] INFLUENZA, UNSPECIFIED FORMULATION 2021 88 complet ed [facility] COVID-19 (MODERNA), MRNA, LNP-S, PF, 100 MCG/0.5ML DOSE OR 50 MCG/0.25ML DOSE 2020 207 complet ed [facility] COVID-19 (MODERNA), MRNA, LNP-S, PF, 100 MCG/0.5ML DOSE OR 50 MCG/0.25ML DOSE 2020 207 complet ed [facility]LV [facility] COVID-19 (MODERNA), MRNA, LNP-S, PF, 100 MCG/0.5ML DOSE OR 50 MCG/0.25ML DOSE 2020 207 complet ed [facility] HEP A, ADULT 3 2016 52 complet ed [facility] VARICELLA 2 2016 21 complet ed [facility] PNEUMOCOCCAL POLYSACCHARID E PPV23 2015 33 complet ed [facility] VARICELLA 1 2015 21 complet ed [facility] TDAP 2009 115 complet ed [facility] HEP B, ADULT 3 2005 43 complet ed [facility] HEP A, ADULT 2002 52 complet ed [facility] HEP B, ADULT 2002 43 complet ed [facility] HEP A, ADULT 1 2001 52 complet ed [facility] HEP A, UNSPECIFIED FORMULATION 2001 85 complet ed [facility] HEP B, ADULT 1 2001 43 complet ed [facility] Results Combined list of recent chemistry, hematology and other laboratory results from Department of Defense and Veterans Affairs, ranging from 15 months to all on record, depending upon the facility. Order Name Results Value Reference Range Date Interpretation Specimen Comments Source HEMOGLOB IN A1C PANEL HEMOGLOBIN A1C/HEMOGL OBIN.TOTAL IN BLOOD BY HPLC 9.5 4.0 - 5.6 12/18 H Specimen Type: BLOOD Comment: Values obtained from A1C measurement s can vary. For atypical A1C assays, a reported value of 7.0 could actually be between 6.72 and 7.28 if measured by a reference method. A reported value of 9.0 could actually be between 8.73 and 9.27. Ref: http://www. ngsp.org/[place] Pdata.asp Ordering Provider: AYUSH GALLARDO Report Released Date/Time: Dec 12, 2023 03:32 PM Reporting Lab: [address] [address] Performing Lab: [address] [address] [facility] BASIC METABOLI C PANEL (non-fas ting) UREA NITROGEN [MASS/VOLU ME] IN SERUM OR PLASMA 17 mg/dL 7 - 25 12/18 Specimen Type: SERUM No comment entered. Ordering Provider: AYUSH GALLARDO Report Released Date/Time: Dec 12, 2023 03:32 PM Reporting Lab: [facility] [address] [facility] [address] Performing Lab: [address] [address] [facility] BASIC METABOLI C PANEL (non-fas ting) GLUCOSE [MASS/VOLU ME] IN SERUM OR PLASMA 149 mg/dL 65 - 100 12/18 H Specimen Type: SERUM No comment entered. Ordering Provider: AYUSH GALLARDO Report Released Date/Time: Dec 12, 2023 03:32 PM Reporting Lab: [facility] [place] [facility] [address] [facility] [address] Performing Lab: [facility] [address] [facility] [facility] [address] [facility] BASIC METABOLI C PANEL (non-fas ting) SODIUM [MOLES/VOL UME] IN SERUM OR PLASMA 139 mmol/L 135 - 145 12/18 Specimen Type: SERUM No comment entered. Ordering Provider: AYUSH GALLARDO Report Released Date/Time: Dec 12, 2023 03:32 PM Reporting Lab: [facility] [address] [address] Performing Lab: [facility] [address] [address] [facility] BASIC METABOLI C PANEL (non-fas ting) POTASSIUM [MOLES/VOL UME] IN SERUM OR PLASMA 4.3 mmol/L 3.5 - 5.0 12/18 Specimen Type: SERUM No comment entered. Ordering Provider: AYUSH GALLARDO Report Released Date/Time: Dec 12, 2023 03:32 PM Reporting Lab: [facility] [address] [address] Performing Lab: [facility] [address] [address] [facility] BASIC METABOLI C PANEL (non-fas ting) CHLORIDE [MOLES/VOL UME] IN SERUM OR PLASMA 104 mmol/L 100 - 110 12/18 Specimen Type: SERUM No comment entered. Ordering Provider: AYUSH GALLARDO Report Released Date/Time: Dec 12, 2023 03:32 PM Reporting Lab: [facility] [address] [address] Performing Lab: [facility] [address] [address] [facility] BASIC METABOLI C PANEL (non-fas ting) CARBON DIOXIDE, TOTAL [MOLES/VOL UME] IN SERUM OR PLASMA 25 meq/L 20 - 30 12/18 Specimen Type: SERUM No comment entered. Ordering Provider: AYUSH GALLARDO Report Released Date/Time: Dec 12, 2023 03:32 PM Reporting Lab: [facility] [address] Performing Lab: [facility] [address] [facility] BASIC METABOLI C PANEL (non-fas ting) CREATININE [MASS/VOLU ME] IN SERUM OR PLASMA 1.00 mg/dL 0.50 - 1.40 12/18 Specimen Type: SERUM No comment entered. Ordering Provider: AYUSH GALLARDO Report Released Date/Time: Dec 12, 2023 03:32 PM Reporting Lab: [facility] [address] Performing Lab: [facility] [address] [facility] BASIC METABOLI C PANEL (non-fas ting) GLOMERULAR FILTRATION RATE/1.73 SQ M.PREDICTE D [VOLUME RATE/AREA] IN SERUM, PLASMA OR BLOOD BY CREATININE -BASED FORMULA (CKD-EPI 2020) >90mL/mi n 60 12/18 Specimen Type: SERUM No comment entered. Ordering Provider: AYUSH GALLARDO Report Released Date/Time: Dec 12, 2023 03:32 PM Reporting Lab: [facility] [address] Performing Lab: [facility] [address] [facility] CBC AND DIFF (AUTO) LEUKOCYTES [#/VOLUME] IN BLOOD BY AUTOMATED COUNT 4.84 10*3/uL 4.50 - 11.00 12/18 Specimen Type: BLOOD No comment entered. Ordering Provider: AYUSH GALLARDO Report Released Date/Time: Dec 12, 2023 03:32 PM Reporting Lab: [facility] [address] [facility] [address] Performing Lab: [facility] [address] [facility] [address] [facility] CBC AND DIFF (AUTO) ERYTHROCYT ES [#/VOLUME] IN BLOOD BY AUTOMATED COUNT 5.19 10*6/uL 4.23 - 5.66 12/18 Specimen Type: BLOOD No comment entered. Ordering Provider: AYUSH GALLARDO Report Released Date/Time: Dec 12, 2023 03:32 PM Reporting Lab: [facility] [address] [facility] [facility] [address] Performing Lab: [facility] [address] [facility] [address] [facility] CBC AND DIFF (AUTO) HEMOGLOBIN [MASS/VOLU ME] IN BLOOD 15.5 g/dL 12.8 - 17 12/18 Specimen Type: BLOOD No comment entered. Ordering Provider: AYUSH GALLARDO Report Released Date/Time: Dec 12, 2023 03:32 PM Reporting Lab: [facility] [address] [facility] [facility] [address] Performing Lab: [facility] [address] [facility] [address] [facility] CBC AND DIFF (AUTO) HEMATOCRIT [VOLUME FRACTION] OF BLOOD BY AUTOMATED COUNT 45.3 39.2 - 50.4 12/18 Specimen Type: BLOOD No comment entered. Ordering Provider: AYUSH GALLARDO Report Released Date/Time: Dec 12, 2023 03:32 PM Reporting Lab: [facility] [address] [facility] [facility] [address] Performing Lab: [facility] [address] [facility] [facility] [address] [facility] CBC AND DIFF (AUTO) MCV [ENTITIC VOLUME] BY AUTOMATED COUNT 87.3 fL 82 - 99 12/18 Specimen Type: BLOOD No comment entered. Ordering Provider: AYUSH GALLARDO Report Released Date/Time: Dec 12, 2023 03:32 PM Reporting Lab: [facility] [address] [address] Performing Lab: [facility] [place] [facility] [address] [facility] [facility] [address] [facility] CBC AND DIFF (AUTO) MCHC [MASS/VOLU ME] BY AUTOMATED COUNT 34.2 g/dL 30.8 - 35.1 12/18 Specimen Type: BLOOD No comment entered. Ordering Provider: AYUSH GALLARDO Report Released Date/Time: Dec 12, 2023 03:32 PM Reporting Lab: [facility] [address] [address] Performing Lab: [facility] [place] [address] [address] [facility] CBC AND DIFF (AUTO) PLATELETS [#/VOLUME] IN BLOOD BY AUTOMATED COUNT 297 10*3/uL 140 - 360 12/18 Specimen Type: BLOOD No comment entered. Ordering Provider: AYUSH GALLARDO Report Released Date/Time: Dec 12, 2023 03:32 PM Reporting Lab: [facility] [place] [address] [address] Performing Lab: [facility] [place] [address] [address] [facility] CBC AND DIFF (AUTO) ERYTHROCYT E DISTRIBUTI ON WIDTH [RATIO] BY AUTOMATED COUNT 11.7 12.0 - 16.0 12/18 L Specimen Type: BLOOD No comment entered. Ordering Provider: AYSUH GALLARDO Report Released Date/Time: Dec 12, 2023 03:32 PM Reporting Lab: [facility] [place] [address] [address] Performing Lab: [facility] [address] [facility] [address] [facility] CBC AND DIFF (AUTO) MONOCYTES [#/VOLUME] IN BLOOD BY AUTOMATED COUNT 0.51 10*3/uL 0.30 - 1.10 12/18 Specimen Type: BLOOD No comment entered. Ordering Provider: AYUSH GALLARDO Report Released Date/Time: Dec 12, 2023 03:32 PM Reporting Lab: [facility] [address] [facility] [facility] [address] Performing Lab: [facility] [address] [facility] [address] [facility] CBC AND DIFF (AUTO) MCH [ENTITIC MASS] BY AUTOMATED COUNT 29.9 pg 26.2 - 32.6 12/18 Specimen Type: BLOOD No comment entered. Ordering Provider: AYUSH GALLARDO Report Released Date/Time: Dec 12, 2023 03:32 PM Reporting Lab: [facility] [address] [facility] [facility] [address] Performing Lab: [facility] [address] [facility] [address] [facility] CBC AND DIFF (AUTO) NEUTROPHIL S/100 LEUKOCYTES IN BLOOD BY AUTOMATED COUNT 53.6 43.7 - 75.8 12/18 Specimen Type: BLOOD No comment entered. Ordering Provider: AYUSH GALLARDO Report Released Date/Time: Dec 12, 2023 03:32 PM Reporting Lab: [facility] [address] [facility] [facility] [address] Performing Lab: [facility] [address] [facility] [address] [facility] CBC AND DIFF (AUTO) LYMPHOCYTE S/100 LEUKOCYTES IN BLOOD BY AUTOMATED COUNT 34.1 14.0 - 42.3 12/18 Specimen Type: BLOOD No comment entered. Ordering Provider: AYUSH GALLARDO Report Released Date/Time: Dec 12, 2023 03:32 PM Reporting Lab: [facility] [address] [facility] [facility] [address] Performing Lab: [facility] [address] [facility] [facility] [address] [facility] CBC AND DIFF (AUTO) MONOCYTES/ 100 LEUKOCYTES IN BLOOD BY AUTOMATED COUNT 10.5 5.1 - 13.7 12/18 Specimen Type: BLOOD No comment entered. Ordering Provider: AYUSH GALLARDO Report Released Date/Time: Dec 12, 2023 03:32 PM Reporting Lab: [facility] [facility] [address] [facility] [address] Performing Lab: [facility] [place] [facility] [address] [facility] [facility] [address] [facility] CBC AND DIFF (AUTO) EOSINOPHIL S/100 LEUKOCYTES IN BLOOD BY AUTOMATED COUNT 1.0 0.4 - 6.8 12/18 Specimen Type: BLOOD No comment entered. Ordering Provider: AYUSH GALLARDO Report Released Date/Time: Dec 12, 2023 03:32 PM Reporting Lab: [facility] [place] [facility] [address] [facility] [address] Performing Lab: [facility] [place] [facility] [address] [facility] [address] [facility] CBC AND DIFF (AUTO) BASOPHILS/ 100 LEUKOCYTES IN BLOOD BY AUTOMATED COUNT 0.6 0.1 - 2.0 12/18 Specimen Type: BLOOD No comment entered. Ordering Provider: AYUSH GALLARDO Report Released Date/Time: Dec 12, 2023 03:32 PM Reporting Lab: [facility] [facility] [address] [facility] [address] Performing Lab: [facility] [facility] [address] [facility] [facility] [address] [facility] CBC AND DIFF (AUTO) NEUTROPHIL S [#/VOLUME] IN BLOOD BY AUTOMATED COUNT 2.59 10*3/uL 2.20 - 7.60 12/18 Specimen Type: BLOOD No comment entered. Ordering Provider: AYUSH GALLARDO Report Released Date/Time: Dec 12, 2023 03:32 PM Reporting Lab: [facility] [address] [facility] [address] Performing Lab: [facility] [address] [facility] [facility] [address] [facility] CBC AND DIFF (AUTO) LYMPHOCYTE S [#/VOLUME] IN BLOOD BY AUTOMATED COUNT 1.65 10*3/uL 1.00 - 3.20 12/18 Specimen Type: BLOOD No comment entered. Ordering Provider: AYUSH GALLARDO Report Released Date/Time: Dec 12, 2023 03:32 PM Reporting Lab: [facility] [address] [facility] [facility] [address] Performing Lab: [facility] [address] [place] [address] [facility] CBC AND DIFF (AUTO) EOSINOPHIL S [#/VOLUME] IN BLOOD BY AUTOMATED COUNT 0.05 10*3/uL 0.03 - 0.44 12/18 Specimen Type: BLOOD No comment entered. Ordering Provider: AYUSH GALLARDO Report Released Date/Time: Dec 12, 2023 03:32 PM Reporting Lab: [facility] [address] [facility] [facility] [address] Performing Lab: [facility] [address] [place] [address] [facility] CBC AND DIFF (AUTO) BASOPHILS [#/VOLUME] IN BLOOD BY AUTOMATED COUNT 0.03 10*3/uL 0.01 - 0.13 12/18 Specimen Type: BLOOD No comment entered. Ordering Provider: AYUSH GALLARDO Report Released Date/Time: Dec 12, 2023 03:32 PM Reporting Lab: [facility] [address] [facility] [address] Performing Lab: [facility] [address] [facility] [address] [facility] CBC AND DIFF (AUTO) IMMATURE GRANULOCYT ES/100 LEUKOCYTES IN BLOOD BY AUTOMATED COUNT 0.2 0.0 - 0.7 12/18 Specimen Type: BLOOD No comment entered. Ordering Provider: AYUSH GALLARDO Report Released Date/Time: Dec 12, 2023 03:32 PM Reporting Lab: [address] [address] Performing Lab: [facility] [address] [facility] [address] [facility] CBC AND DIFF (AUTO) IMMATURE GRANULOCYT ES [#/VOLUME] IN BLOOD 0.01 10*3/uL 0.00 - 0.06 12/18 Specimen Type: BLOOD No comment entered. Ordering Provider: AYUSH GALLARDO Report Released Date/Time: Dec 12, 2023 03:32 PM Reporting Lab: [address] [address] Performing Lab: [address] [address] [facility] OCCULT BLOOD FIT X1 SCREEN(I N-HOUSE) HEMOGLOBIN .GASTROINT ESTINAL.LO WER [PRESENCE] IN STOOL BY IMMUNOASSA Y Negative 11/27 Specimen Type: FECES No comment entered. Ordering Provider: AYUSH GALLARDO Report Released Date/Time: Nov 17, 2023 11:09 AM Reporting Lab: [address] [address] Performing Lab: [address] [address] [facility] Vital Signs Combined list of inpatient and outpatient Vital Signs from Department of Defense and Veterans Affairs, ranging from 12 months to all on record, depending upon the facility. Vital Sign Value Date Comments Source SYSTOLIC BLOOD PRESSURE 132 11/16/19 25 08:57:12 [facility] DIASTOLIC BLOOD PRESSURE 83 025 08:57:12 [facility] PULSE OXIMETRY 99 11/15/2024 08:57:12 [facility] WEIGHT 244 11/15/2024 08:57:12 [facility] BMI 31 kg/m2 11/15/2024 08:57:12 [facility] HEIGHT 74 11/15/2024 08:57:12 [facility] TEMPERATURE 97.9 11/15/2024 08:57:12 [facility] PULSE 91 11/15/2024 08:57:12 [facility] RESPIRATION 18 11/15/2024 08:57:12 [facility] WEIGHT 236.1 07/12/2024 09:31:55 [facility] BMI 31 kg/m2 07/12/2024 09:31:55 [facility] HEIGHT 73 07/12/2024 09:31:55 [facility] WEIGHT 225 12/27/2023 13:58:54 [facility] BMI 28 kg/m2 12/27/2023 13:58:54 [facility] Encounters Combined list of: 1) Encounters from Department of Veterans Affairs facilities going backup to the last 18 months, not all VA inpatient encounters are included; 2) Encounters from the Department of Defense facilities going backup to 280 months. Location Location Details Encounter Type Encounter Number Reason For Visit Attending Provider ADM Date DC Date Status Disposition Source [facility] Outpatient [facility]counter [id number] 10/11 [facility] [id number] 10/11 [facility] Out[facility]counter [id number] 10/12 [facility] Out[facility]counter [id number] 10/12 [facility]counter [id number] 10/14 [facility]counter [id number] 10/14 [facility]counter [id number] 11/07 [facility]counter [id number] 11/14 [facility] Out[facility]counter [id number] 11/14 [facility]counter [id number] 11/15 [facility] En[facility] [id number] 11/16 [facility] OFFICE O/P [place] 60 MIN [id number] Diagnos is: ICD-10- CM E11.8 Type 2 diabete s mellitu s with unspeci fied complic ations PIERRE GALLARDO C 11/16 [place] [facility] Out[facility] Encounter [id number] PIERRE GALLARDOA C 11/16 [facility] En[facility] [id number] 11/19 [facility] CASE MANAGEMENT [id number] Diagnos is: ICD-10- CM Z71.89 Other specifi ed financial aid counselor RYAN Burks 11/20 [facility] ([id number]) DIAB MANAGE TRN PER INDIV [id number] Diagnos is: ICD-10- CM E11.8 Type 2 diabete s mellitu s with unspeci fied complic ations VIVEK BURGER 11/23 [id number] [place] [facility] Outpatient Encounter [id number] VIVEK BURGER 11/23 [facility] [place] QNHP OL DIG ASSMT&MGMT 5-10 [id number] Diagnos is: ICD-10- CM Z51.81 Encount er for therape utic drug level monitor DARREN Jarvis 12/10 [facility] Outpatient Encounter [id number] VIVEK BURGER 12/11 [facility] [facility] [place] PSYTX W PT 45 MINUTES [id number] Diagnos is: ICD-10- CM F43.22 Adjustm ent disorde r with anxiety PERRIUR,J ILL M 12/25 [facility] (631GE) DIAB MANAGE TRN PER INDIV [id number] Diagnos is: ICD-10- CM E11.8 Type 2 diabete s mellitu s with unspeci fied complic ations VIVEK BURGER 12/26 [facility] (631GE) [place] [facility] [facility] Outpatient Encounter [id number] VIVEK BURGER 12/26 [place] [facility] [place] [facility] W PT 30 MINUTES [id number] Diagnos is: ICD-10- CM F43.22 Adjustm ent disorde r with anxiety VINOCOUR,J ILL M 01/22 [facility] [place] SELF CARE MNGMENT TRAINING [id number] Diagnos is: ICD-10- CM M54.40 Lumbago with sciatic a, unspeci fied side DANNEN,DELFINA HAEL 01/22 [facility] [place] THERAPEUTI C EXERCISES [id number] Diagnos is: ICD-10- CM M54.40 Lumbago with sciatic a, unspeci fied side DANNEN,DELFINA HAEL 02/06 [facility] [id number] Diagnos is: ICD-10- CM M54.40 Lumbago with sciatic a, unspeci fied side DANNEN,DELFINA HAEL 02/20 [facility] (631GE) DIAB MANAGE TRN PER INDIV [id number] Diagnos is: ICD-10- CM E11.8 Type 2 diabete s mellitu s with unspeci fied complic ations VIVEK BURGER 06/07 [facility] (631GE[facility] [place] [place] [address]-3.63 1BY. Diagnos is: ICD-10- CM E66.09 Other obesity due to excess calorie s FAREED ELIZABETH 07/12 [facility] [place] [facility] Outpatient Encounter [id number] 11/15 [place] [facility] [place] [facility] [place] [facility] Outpatient Encounter [id number] PIERRE GALLARDO C 11/15 [place] [facility] [place] Outpatient Encounter [id number] 11/15 [facility] Social History Combined list of available smoking, tobacco, and other social history from Department of Defense and Veterans Affairs facilities. Social History Type Response Date Comment Sourc e Tobacco smoking status NHIS VA-TOBACCO NEVER USED CIGARETTES 11/15/2024 [facility] [place] [facility] History of tobacco use VA-TOBACCO NEVER USED OTHER TYPE 11/15/2024 [place] [facility] [place] [facility] History of tobacco use VA-TOBACCO FORMER USER 11/17/2023 [place] CNT [place] [facility] History of tobacco use VA-TOBACCO NEVER USED 11/17/2023 ZEENAT Lenz Plan of Care List of future care activities from Department of Veterans Affairs facilities. Additional future care activities may be listed in the Assessment and Plan section. Date/Time Care Activity Care Activity Detail Facili ty 11/12/2024 Laboratory - Chemistry Order OCC ULT BLOOD FIT X1 SCREEN (MFP ONLY) STOOL FECES SP [facility]
--- OUTSIDE RECORDS SUMMARY | 2024-12-05 07:52 | XMS_ITS | Encounter Summary ---
Author Name Department of [place] [place] Organization [place] Address [address] [place] [address] Care Team Providers Care Poultry Pinner Name Role Phone LUL GALLARDO Primary Care Provider Unavailabl e Selected Encounter This section includes the information on record at [place] for the Encounter. Date/Time Encounter Type Encounter Description Reason Provider Source Dec 27, 2023 11:00 AM DIAB MANAGE TRN PER [facility] ICD-10-CM E11.8 Type 2 diabetes mellitus with unspecified complications EV BURGER [place] Encounter Template Text not used by [place] Assessments - Encounter Diagnoses This section includes the primary and secondary diagnoses documented for the Encounter. Date/Time Primary/Secondary Diagnosis Diagnosis Name Provider Source Dec 27, 2023 03:12 PM PRIMARY Type 2 diabetes mellitus with unspecified complications EV BURGER [facility] (631GE) Plan of Treatment: Future Appointments (+ 6 months) and Future Tests (+/- 45 days) The Plan of Treatment section includes future care activities for the patient from all [place] treatmentfacilities. This section includes future appointments and future orders which are active, pending or scheduled. Future Appointments This section includes appointments that were scheduled to occur 6 months from the date of the Encounter, up to a maximum of 20 appointments. The data comes from all [place] treatment facilities. Appointment Date/Time Appointment Type Appointme Facility Name January 23, 2024 09:00 AM AMBULATORY - PSYCHIATRY [facility] January 23, 2024 10:30 AM AMBULATORY - REHAB MEDICIN [facility] [place] Feb 07, 2024 09:30 AM AMBULATORY - REHAB MEDICIN [facility] Feb 21, 2024 10:00 [facility] Jun 07, 2024 02:00 PM [facility]ULAT[facility] - MEDICINE [facility] Lab Results: +/- 30 days of the encounter This section includes the Chemistry and Hematology Lab Results on record with [place] for the patient. Radiology Reports and Pathology Reports are provided separately, in subsequent sections. Lab Results This section contains the Chemistry/Hematology Results that were resulted 30 days before or 30 daysafter the date of the Encounter. Date/Time Source Result Type Result - Unit Interpretation Reference Range Comment Dec 19, 2023 08:17 AM [facility] HEMOGLOBIN A1C PANEL Specimen Type: BLOOD Comment: Values obtained from A1C measurements can vary. For atypical A1C assays, a reported value of 7.0 could actually be between 6.72 and 7.28 if measured by a reference method. A reported value of 9.0 could actually be between 8.73 and 9.27. Ref: http://www.ngs p.org/CAPdata. asp Ordering Provider: LUL GALLARDO Report Released Date/Time: Dec 12, 2023 03:32 PM Reporting Lab: [facility] [address] [address] Performing Lab: [address] [address] HEMOGLOBIN A1C 9.5 H 4.0-5.6 Dec 19, 2023 08:17 AM [facility] BASIC METABOLIC PANEL (non-fasting) Specimen Type: SERUM No comment entered. Ordering Provider: ULL GALLARDO Report Released Date/Time: Dec 12, 2023 03:32 PM Reporting Lab: [facility] [address] [address] Performing Lab: [address] [address] U[place]A NITROGEN 17 mg/dL 7-25 GLUCOSE 149 mg/dL H 65-100 SODIUM 139 mmol/L 135-145 POTASSIUM 4.3 mmol/L 3.5-5.0 CHLORIDE 104 mmol/L 100-110 CO2 25 meq/L 20-30 CREATININE, Serum 1.00 mg/dL 0.50-1.40 eGFR(CKD-EPI 2020) >90 mL/min >60 Dec 19, 2023 08:17 AM [facility] CBC AND DIFF (AUTO) Specimen Type: BLOOD No comment entered. Ordering Provider: LUL GALLARDO Report Released Date/Time: Dec 12, 2023 03:32 PM Reporting Lab: [facility] [address] [address] Performing Lab: [facility] [address] [address] WBC 4.84 10*3/uL 4.50-11.00 RBC 5.19 10*6/uL 4.23-5.66 HGB 15.5 g/dL 12.8-17 HCT 45.3 39.2-50.4 MCV 87.3 fL 82-99 MCHC 34.2 g/dL 30.8-35.1 PLT 297 10*3/uL 140-360 RDW-CV 11.7 L 12.0-16.0 Mingo, Abs 0.51 10*3/uL 0.30-1.10 MCH 29.9 pg 26.2-32.6 Neut % 53.6 43.7-75.8 Lymph % 34.1 14.0-42.3 Mingo % 10.5 5.1-13.7 Eos % 1.0 0.4-6.8 Baso % 0.6 0.1-2.0 Neut, Abs 2.59 10*3/uL 2.20-7.60 Lymph, Abs 1.65 10*3/uL 1.00-3.20 Eos, Abs 0.05 10*3/uL 0.03-0.44 Baso, Abs 0.03 10*3/uL 0.01-0.13 Immature Gran % 0.2 0.0-0.7 Immature Gran, Abs 0.01 10*3/uL 0.00-0.06 Nov 28, 2023 12:00 AM [place] OCCULT BLOOD FIT X1 SCREEN(IN-HOUSE) Sp ecimen Type: FECES No comment entered. Ordering Provider: LUL GALLARDO Report Released Date/Time: Nov 17, 2023 11:09 AM Reporting [facility] [address] [address] Performing Lab: [facility] [address] [phone] OCCULT BLOOD (FIT)#1 OF 1 Negative NEG Encounter Notes: All associated encounter notes This section contains the clinical notes associated to the Encounter. Date/Time Encounter Note(s) Provider Source Dec 27, 2023 11:00 AM DIABETOLOGY EDUCAT ION NOTE: LOCAL TITLE: DIABETES EDU FOLLOW UP STANDARD TITLE: DIABETOLOGY EDUCATION NOTE DATE OF NOTE: DEC 27, 2023@11:00 ENTRY DATE: DEC 27, 2023@12:10:23 AUTHOR: EV BURGER EXP COSIGNER: URGENCY: STATUS: COMPLETED FOLLOW UP DIABETES EDUCATION VISIT DIABETES SELF-MANAGEMENT EDUCATION AND SUPPORT (DSMES) PROGRAM Demographics: Patient Name: RHIANNA AVILES : Oct Age: 48 Sex: MALE Race: WHITE [place] [employer] (VVC) Standard Documentation VV Clinician Resources Only: E911 (Emergency Call Relay Center): [phone] National Veterans Crisis Line: (9-860-883-UFZJ) press #1. CHERYL Suicide Coordinator: [phone], Ext. [phone]; Back-up Ext. [phone] Cook Vacuum Kettle of the Day(AOD), Ethle LUNA: [phone], Ext. [phone] Introduction: Visit is being conducted by [place] [employer]. Baker identified with 2 identifiers: Full name, Complete date of Emergency Plan: confirmed and/or provided the following information in case of emergency or technology failure. PATIENT PHONE - PHONE NUMBER [CELLULAR] - Is patient phone number correct, if not, enter below: 's phone number: RHIANNA AVILES [address], [place], [address] Baker's present location and address for appointment: Home address above Baker's emergency contact name and phone number: Spouse on file reported that location is private and safe: YES Informed Consent: informed of the risks and benefits of Telehealth video care. Baker has the right to refuse video services. If refuses video visit, a cjis-hd-lscf visit will be scheduled. Baker verbalized consent for this video visit: YES Baker provided consent for any other persons present for visit: No If yes, who and relationship to patient: Secure visit: Visit was locked for security and privacy: YES REASON FOR VISIT: DSMES follow up on glucometer training and goals Behavior health goals set at previous visit: HEALTH GOAL #1: Monitoring In order to meet this goal, I will: Check BG once or twice a week. Behavioral goal 1 met: 100% of the time HEALTH GOAL #2:Healthy eating In order to meet this goal, I will: work on diet and keep it in routine; eat at set times. Behavioral goal 2 met: 100% of the time Clinical or Quality of Life outcome goal set at last visit:Get 20-year letter in a month, and enjoy time with family. (Met) MOST RECENT LABS: HEMOGLOBIN A1C TREND Collection DT Spec HGBA1c 12/19/2023 08:17 BLOOD 9.5% H (Down from 12.1% in Oct) WEIGHT: 230 lb [104.33 kg] (11/17/2023 11:02) (Reported losing 5 pounds) HEIGHT: 75 in [190.5 cm] (11/17/2023 11:02) BMI: 28.8 _ Diet Recall: MEALS: BREAKFAST: garcia, egg and cheese sandwich from [employer], or overnight oats w/ fruit LUNCH: Skips sometimes; snack pack with nuts and cheese, or salad or small sandiwch DINNER: Lean protein and a vegetable SNACKS: Nuts BEVERAGES water, coffee BENEFITS OF WEIGHT LOSS- Covered and Vet lost 5lbs in the past month. In the last 12 months, were there times when the food for you just did not last and there was no money to buy more? No _ PHYSICAL ACTIVITY stated he has been doing better about getting active by walking for 40minutes when he gets to [employer] before going into work. 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 Baker has not been doing strength, flexibility, or balance training due to chronic pain in his back, but he is scheduled to meet with physical therapy on Friday 12/29. _ GLUCOSE MONITORING Baker has been checking his BG up to 3-4x per day to get a general idea of where his glucose levels are. Reported morning readings fasted are around 140's, post-breakfast in the 120's, post-lunch in the 115's, and before bed is ~127mg/dL. _ DIABETES MEDICATIONS: Non-VA METFORMIN HCL TAB,ORAL 500MG TAKE ONE TABLET BY MOUTH TWICE DAILY Taking medication as prescribed. 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 was well-groomed, had clear speech and logical thought process. Baker presented in a sweatshirt at home and stated it was his telework day. Baker has been making behavior changes including monitoring BG for the first times, walking more, and adjusting his eating patterns while taking medication prescribed by his non-VA provider. reported he is doing good/fine with the adjustments and attested they were sustainable for him. Baker's previous physical therapy appointment was cancelled on December 11 by clinic due to provider being out, but he rescheduled to Friday 12/29 and he's looking forward to working with them on his back pain. Introduced the idea of a TENS unit and said he might ask PT about it. Baker is currently in school taking 2 classes right now and working on his Bachelors in Human Resources; he'll have 7 more classes left in April. Introduced the idea of Veterans Readiness and Employement (VRE) program, and provided contact information via secure message. STRATEGIES FOR BEHAVIOR CHANGE WHOLE HEALTH COACHING SKILLS Coaching or Motivational Interviewing skills used. Education plan/goals/objectives: Utilize [employer] Diabetes Guidebook as reference to learn more about diabetes. 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 HEALTH GOAL #2: Monitoring In order to meet this goal, I will: continue to check my blood glucose at least twice a week. Clinical or Quality of Life outcome baseline: Fill out Intent to File (Form 10- 10EZ) on va.gov and research DBQs to submit disability claim; get back into crossfit and gym sessions with my friends. RTC 5 months FOLLOW UP APPTS: 12/30/2023 13:30 CWM/SO/PHYSICAL THERAPY C 01/23/2024 09:00 SPOPC/PCMHI/VINOCOUR 05/29/2024 11:00 CWM/WO/VVC/DM EDU 11/15/2024 09:00 CWM/SO/PACT 7 DM type is: Type 2 Length of Visit: 60 minutes rtc 9.24 at 11am /luisana/ EV BURGER RN DIABETES FUEL BUYER Signed: 12/27/2023 15:12 EV BURGER [facility] (105GE)
--- OUTSIDE RECORDS SUMMARY | 2024-12-05 07:52 | XMS_ITS | Encounter Summary ---
Author Name Department of Veter[place] Affairs [place] Organization Department [place] Address [address] [place] [id number] Care Team Providers Care Philosophy And Religion Instructor Name Role Phone LUL GALLARDO Primary Care Provider Unavailabl e Selected Encounter This section includes the information on record at [place] for the Encounter. Date/Time Encounter Type Encounter Description Reason Pro vider Source Nov 15, 2024 09:00 AM Outpatient Encounter PRIMARY CARE/MEDICINE [facility] Encounter Template Text not used by [place] Plan of Treatment: Future Appointments (+ 6 months) and Future Tests (+/- 45 days) The Plan of Treatment section includes future care activities for the patient from all [place] treatmentfacilities. This section includes future appointments and future orders which are active, pending or scheduled. Active, Pending, and Scheduled Orders This section includes a listing of several types of active, pending, and scheduled orders, including clinic medications orders, diagnostic test orders, procedure orders and consult orders; where the start date of the order is 45 days before the date of the Encounter or 45 days after the date of theEncounter. The data comes from all [place] treatment facilities. Test Date/Time Test Type Test Details Facility Name Nov 12, 2024 12:00 AM Laboratory - Chemi stry Order OCCULT BLOOD FIT X1 SCREEN (MFP ONLY) STOOL [facility] Vital Signs: All taken on the encounter date This section contains inpatient and outpatient Vital Signs collected on the date of the Encounter. Date/Time Temperature Pulse Blood Pressure Respiratory Rate SP02 Pain Height Weight Body Mass Index Source Nov 15, 2024 08:57 AM 97.9 91 132/83 18 99 74 244 31 [facility] IE Social History: Smoking Status (Most current) and Tobacco Use (All prior to encounter date) This section includes the most current, and the historical, smoking and tobacco- related health factors from the [place] facility where the Encounter took place. Current Smoking Status This section includes the most current smoking, or tobacco-related health factor, from the [place] facility where the Encounter took place. Date/Time Current Smoking Status Comment Meghna mancia Nov 17, 2023 11:00 AM [place]-TOBACCO NEVER USED [place]
--- OUTSIDE RECORDS SUMMARY | 2024-12-05 07:52 | XMS_ITS | Encounter Summary ---
Author Name Department of Vetera [place] Affairs [place] Organization [place] Address [address] [place] [id number] Care Team Providers Care Senior Master Scheduler Name Role Phone LUL GALLARDO Primary [facility] Selected Encounter This section includes the information on record at [place] for the Encounter. Date/Time Encounter Type Encounter Description Reason Provider Source Feb 07, 2024 09:30 AM THERAPEUTIC EXERCISES PHYSICAL THERAPY ICD-10-CM M54.40 Lumbago with sciatica, unspecified side JUSTYNA CH [place]xton Encounter Template Text not used by [place] Assessments - Encounter Diagnoses This section includes the primary and secondary diagnoses documented for the Encounter. Date/Time Primary/Secondary Diagnosis Diagnosis Name Provider Source Feb 07, 2024 09:35 AM PRIMARY Lumbago with sciatica, unspecified side HAROON CH Plan of Treatment: Future Appointments (+ 6 months) and Future Tests (+/- 45 days) The Plan of Treatment section includes future care activities for the patient from all [place] treatmentfacilities. This section includes future appointments and future orders which are active, pending or scheduled. Future Appointments This section includes appointments that were scheduled to occur 6 months from the date of the Encounter, up to a maximum of 20 appointments. The data comes from all [place] treatment facilities. Appointment Date/Time Appointment Type Appointme nt Facility Name Feb 21, 2024 10:00 AM [facility] Jun 07, 2024 02:00 PM [place]ORY - [place]IC[place] [facility] Jul 12, 2024 09:15 AM AMBUL[facility] - NONE [facility] Social History: Smoking Status (Most current) and Tobacco Use (All prior to encounter date) This section includes the most current, and the historical, smoking and tobacco- related health factors from the [place] facility where the Encounter took place. Current Smoking Status This section includes the most current smoking, or tobacco-related health factor, from the [place] facility where the Encounter took place. Date/Time Current Smoking Status Comment Facil ity Nov 17, 2023 11:00 AM [place]-TOBACCO NEVER USED [place] Encounter Notes: All associated encounter notes This section contains the clinical notes associated to the Encounter. Date/Time Encounter Note(s) Provider Source Feb 07, 2024 07:26 AM PHYSICAL THERAPY N OTE: [facility] TITLE: PHYSICAL THERAPY STANDARD TITLE: PHYSICAL THERAPY NOTE DATE OF NOTE: FEB 07, 2024@07:26 ENTRY DATE: FEB 07, 2024@07:26:30 AUTHOR: HAROON CH EXP COSIGNER: URGENCY: STATUS: COMPLETED Initial Evaluation date: 01/23/24 Progress Note Date: 02/23/24 Treatment #: 1 Treatment time: 25 Diagnosis:Lumbago with Sciatica, unspecified Side(ICD-10-CM M54.40) Provider:LUL GALLARDO PT Treatment Precautions: Patient identified by full name and date of Goes by Oscar SUBJECTIVE: patient states they are doing better since eval. Notes the lower back exercises are good and help relieve some of their pain OBJECTIVE: Therapeutic Exercise: Mins: 23 Nustep 8mins standing hip abduction 2x15 red band prone press up 10x10s cat cow 10reps primal push up 10x10s plank 60s Manual therapy: Mins: Neuro re-ed: Mins: Other: Mins: Modalities: Mins: [] contraindication screen completed prior to modality [] skin intact pre/post modality Access Code: [email or web address] URL: [email or web address] Date: 01/23/2024 Prepared by: Haroon Ch Exercises - Prone Press Up On Elbows - 2-3 x daily - 7 x weekly - 5-10 reps - 5-10 hold - Prone Press Up - 2-3 x daily - 7 x weekly - 3 sets - 5-10 reps - 5-10 hold - Cat Cow - 1 x daily - 7 x weekly - 2 sets - 10 reps - Bird Dog - 1 x daily - 7 x weekly - 2 sets - 10 reps - Supine Bridge with Resistance Band - 1 x daily - 7 x weekly - 2-3 sets - 15- 20 reps - Clamshell with Resistance - 1 x daily - 7 x weekly - 2-3 sets - 15-20 reps - Sidelying Bent Knee Lift at 45 Degrees - 1 x daily - 7 x weekly - 2-3 sets - 10-15 reps PATIENT EDUCATION: Mins: 2 Patient education was provided for all aspects of care during this clinical encounter. Provided updated written HEP to patient reviewing proper form sets reps and frequency and safety precautions with patient verbalizing and demonstrating good understanding during visit. ASSESSMENT: Patient seen for routine follow up. Provided instruction for progression in lumbar ROM and abdominal and gluteal strengthening exercises tolerated well without pain. Patient reports lower back pain has improved quite a bit, notes some persistent L lateral hip pain. Provided updated written HEP reviewing with patient today. PLAN: Progress as tolerated focusing on improving lumbar ROM, progressive abdominal and gluteal strengthening program, LE flexibility (hip flexors, quads, hamstrings), HEP teaching and progression [x]Low impact cardio: [x]Nustep []Recumbent bike []Recumbent elliptical []TM []Manual: []STM/DTM []METs/SCS []IASTM []Joint mobilizations [x]Therex: []Progressive UQ [x]Progressive Core [x]Progressive LQ []UQ flex [x] Lumbar flex [x]LQ flex []Foam rolling []Proprioception []Neuro Re-education: []Static []Dynamic []Dual-Task [x]Education: [x]Posture [x]Ergonomics [x]Bodymechanics [x]Self-care strategies []PNE []Modalities(PRN): []Heat/Ice []Estim/Tens []Mechanical traction []K-tape [] Biofreeze /es/ HAROON CH PT, DPT PHYSICAL THERAPIST Signed: 02/07/2024 09:44 HAROON CH [place]
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
--- OUTSIDE RECORDS SUMMARY | 2024-12-05 07:52 | XMS_ITS | Encounter Summary ---
Author Name [facility] Organization [facility] Address [address] [place] [id number] Care Team Providers Care Numerologist Name Role Phone LUL GALLARDO Primary Care Provider Unavailabl e Selected Encounter This section includes the information on record at [place] for the Encounter. Date/Time Encounter Type Encounter Description Reason Provider Source Feb 21, 2024 10:00 AM THERAPEUTIC EXERCISES PHYSICAL THERAPY ICD-10-CM M54.40 Lumbago with sciatica, unspecified side JUSTYNA CH [place] Encounter Template Text not used by [place] Assessments - Encounter Diagnoses This section includes the primary and secondary diagnoses documented for the Encounter. Date/Time Primary/Secondary Diagnosis Diagnosis Name Provider Source Feb 21, 2024 10:23 AM PRIMARY Lumbago with sciatica, unspecified side HAROON CH Plan of Treatment: Future Appointments (+ 6 months) and Future Tests (+/- 45 days) The Plan of Treatment section includes future care activities for the patient from all [place] treatmentfacilities. This section includes future appointments and future orders which are active, pending or scheduled. Future Appointments This section includes appointments that were scheduled to occur 6 months from the date of the Encounter, up to a maximum of 20 appointments. The data comes from all [place] treatment facilities. Appointment Date/Time Appointment Type Appointme nt Facility Name Jun 07, 2024 02:00 PM AM[place]ULATORY [place]INE [place] [facility] [place] [facility] Jul 12, 2024 09:15 AM AMBUL[place]ORY - NONE [place] [facility] [place] [facility] Social History: Smoking Status (Most current) and Tobacco Use (All prior to encounter date) This section includes the most current, and the historical, smoking and tobacco- related health factors from the [place] facility where the Encounter took place. Current Smoking Status This section includes the most current smoking, or tobacco-related health factor, from the [place] facility where the Encounter took place. Date/Time Current Smoking Status Comment Facil ity Nov 17, 2023 11:00 AM [place]-TOBACCO NEVER USED [place] Encounter Notes: All associated encounter notes This section contains the clinical notes associated to the Encounter. Date/Time Encounter Note(s) Provider Source Feb 21, 2024 07:17 AM PHYSICAL THERAPY N OTE: LOCAL TITLE: PHYSICAL THERAPY STANDARD TITLE: PHYSICAL THERAPY NOTE DATE OF NOTE: FEB 21, 2024@07:17 ENTRY DATE: FEB 21, 2024@07:17:46 AUTHOR: HAROON CH EXP COSIGNER: URGENCY: STATUS: COMPLETED Initial Evaluation date: 01/23/24 Progress Note Date: 02/23/24 Treatment #: 2 Treatment time: 30 Diagnosis:Lumbago with Sciatica, unspecified Side(ICD-10-CM M54.40) Provider:LUL GALLARDO PT Treatment Precautions: Patient identified by full name and date of Goes by Oscar SUBJECTIVE: Patient states things are feeling pretty good since last visit. Mostly experiences pain when sitting in an uncomfortable position for too long. Patient states most of their pain day to day is in the lower back not the legs. OBJECTIVE: Therapeutic Exercise: Mins: 25 Nustep 6mins standing hip abduction 3x15 green band pallof press 2x15 black band standing gastroc stretch on 1/2 foam 2x30s piriformis stretch 2x30s sciatic nerve glide 15reps side plank 30s sidelying clamshell 15reps green band Manual therapy: Mins: Neuro re-ed: Mins: Other: Mins: Modalities: Mins: [] contraindication screen completed prior to modality [] skin intact pre/post modality Access Code: [email or web address] URL: [email or web address] Date: 02/21/2024 Prepared by: Haroon Ch Exercises - Standing Hip Abduction with Resistance at Ankles and Counter Support - 1 x daily - 7 x weekly - 2-3 sets - 15-20 reps - Standing Anti-Rotation Press with Anchored Resistance - 1 x daily - 7 x weekly - 2-3 sets - 10-15 reps - Gastroc Stretch on Wall - 1 x daily - 7 x weekly - 3 sets - 30 hold - Prone Press Up - 2-3 x daily - 7 x weekly - 3 sets - 5-10 reps - 5-10 hold - Cat Cow - 1 x daily - 7 x weekly - 2 sets - 10 reps - Primal Push Up - 1 x daily - 7 x weekly - 10 reps - 5-10 hold - Prone Plank Elbows on Ball - 1 x daily - 7 x weekly - 2-3 sets - 30-40 hold - Side Plank on Elbow - 1 x daily - 7 x weekly - 3 sets - 30 hold - Clamshell with Resistance - 1 x daily - 7 x weekly - 2-3 sets - 15-20 reps - Supine Piriformis Stretch with Foot on Ground - 1 x daily - 7 x weekly - 2-3 sets - 30 hold - Supine Sciatic Nerve [place] - 1 x daily - 7 x weekly - 2 sets - 15-20 reps PATIENT EDUCATION: Mins: 2 Patient education was provided for all aspects of care during this clinical encounter. Provided updated written HEP to patient reviewing proper form sets reps and frequency and safety precautions with patient verbalizing and demonstrating good understanding during visit. ASSESSMENT: Patient seen for routine follow up. Patient continues to endorse lower back pain, however symptoms into the legs reported to have decreased in frequency significantly; symptoms appear to be centralizing to the lower back. Today, provided instruction through progressions in LE flexibility and abdominal and gluteal strengthening exercises with good tolerance from patient, just muscle fatigue noted during visit. Provided updated written HEp for carryover reviewing with patient. PLAN: Progress as tolerated focusing on improving [...] HAROON CH PT, DPT PHYSICAL THERAPIST Signed: 02/21/2024 10:27 HAROON CH [place]
--- OUTSIDE RECORDS SUMMARY | 2024-12-05 07:52 | XMS_ITS | Encounter Summary ---
Author Name [facility] [place] Organization [facility] [place] Address [address] [place] [address] Care Team Providers Care Celluloid Trimmer Name Role Phone LUL GALLARDO Primary Care Provider Unavailabl e Selected Encounter This section includes the information on record at [place] for the Encounter. Date/Time Encounter Type Encounter Description Reason Provider Source January 23, 2024 09:00 AM PSYTX W PT 30 MINUTES [facility] INDIV ICD-10-CM F43.22 Adjustment disorder with anxiety TRIP STARK [place] Encounter Template Text not used by [place] Assessments - Encounter Diagnoses This section includes the primary and secondary diagnoses documented for the Encounter. Date/Time Primary/Secondary Diagnosis Diagnosis Name Provider Source Feb 10, 2024 01:55 PM PRIMARY Adjustment disorder with anxiety TRIP STARK ANALISA Plan of Treatment: Future Appointments (+ 6 months) and Future Tests (+/- 45 days) The Plan of Treatment section includes future care activities for the patient from all [place] treatmentfacilities. This section includes future appointments and future orders which are active, pending or scheduled. Future Appointments This section includes appointments that were scheduled to occur 6 months from the date of the Encounter, up to a maximum of 20 appointments. The data comes from all [place] treatment facilities. Appointment Date/Time Appointment Type Appointme nt Facility Name Feb 07, 2024 09:30 AM AMBULATORY - REHAB MEDICIN [facility] [place] Feb 21, 2024 10:00 AM AMBULATORY - REHAB MEDICIN [facility] [place] Jun 07, 2024 02:00 PM AMBULATORY - MEDICINE [place] [facility] [place] [facility] Jul 12, 2024 09:15 AM [facility] - NONE [facility] Social History: Smoking Status (Most current) and Tobacco Use (All prior to encounter date) This section includes the most current, and the historical, smoking and tobacco- related health factors from the [place] facility where the Encounter took place. Current Smoking Status This section includes the most current smoking, or tobacco-related health factor, from the [place] facility where the Encounter took place. Date/Time Current Smoking Status Comment Facil [facility] Nov 17, 2023 11:00 AM [place]-TOBACCO NEVER USED [place] Encounter Notes: All associated encounter notes This section contains the clinical notes associated to the Encounter. Date/Time Encounter Note(s) Provider Source January 23, 2024 09:00 AM [facility]: LOCAL TITLE: PRIMARY MENTAL HEALTH OUTPATIENT FOLLOW UP NOTE STANDARD TITLE: MENTAL HEALTH OUTPATIENT NOTE DATE OF NOTE: JANUARY 23, 2024@09:00 ENTRY DATE: JANUARY 23, 2024@10:42:45 AUTHOR: TRIP STARK EXP COSIGNER: URGENCY: STATUS: COMPLETED VISIT DURATION: 30 min VISIT TYPE: Individual, [id number], follow-up visit PCP: LUL GALLARDO DIAGNOSIS: Adjustment disorder with anxiety REASON FOR FOLLOW UP: Anxiety about senior care ([facility] [employer]); PTSD; Work stress. VET'S STATEMENT OF GOAL AND CONCERNS: The reports he has been away from his worksite for the past 2 weeks and feeling less stressed. He anticipates 1 year until his senior care from the . He has transitioned his focus to delegating more, spreading out the work, and no longer taking on new projects. 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 INTERVENTION: Solution focused interventions Anger management interventions. We discussed instances in which he comes from home from work and encounters a frustrating situation at home between his and son. Encouraged pausing before reacting, counting to 10, asking self will this matter tomorrow? Discussed self-management strategies moving forward. No plan for [facility] follow-up at this time as has adequate coping. DIAGNOSTIC IMPRESSIONS/PLAN: is a 48-year-old man referred by his PCP to [facility] Psychologist for anxiety, PTSD (no formal dx) and work stress. He initially presented with mild symptoms of depression and anxiety with mild interference in psychosocial functioning. His primary concern relates to work stress. 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 No [facility] follow-up needed at this time. CURRENT IMPRESSION OF LETHALITY RISK / PLAN FOR RISK MANAGEMENT: [place] presents at low risk of harm to self or others at this time. INTERDICIPLINARY TREATMENT PLANNING INVOLVING: [facility] PLAN FOR FOLLOW-UP: will reach out for the future [facility] visit as needed in the future. He will otherwise return to [facility] for routine care or sooner as needed. /luisana/ TRIP STARK PSYD CLINICAL PSYCHOLOGIST Signed: 02/10/2024 13:56 TRIP STARK
--- OUTSIDE RECORDS SUMMARY | 2024-12-05 07:53 | XMS_ITS | Encounter Summary ---
Author Name [facility] [place] [facility] [place] Organization [facility] [place] Address [address] [place] [address] Care Team Providers Care Sales Account Associate Name Role Phone LUL GALLARDO Primary Care Provider Unavailabl e Selected Encounter This section includes the information on record at [place] for the Encounter. Date/Time Encounter Type Encounter Description Reason Provider Source Jun 07, 2024 02:00 PM DIAB MANAGE TRN PER [facility] DI[facility] ICD-10-CM E11.8 Type 2 diabetes mellitus with unspecified complications EV BURGER [place] Encounter Template Text not used by [place] Assessments - Encounter Diagnoses This section includes the primary and secondary diagnoses documented for the Encounter. Date/Time Primary/Secondary Diagnosis Diagnosis Name Provider Source Jun 07, 2024 03:57 PM PRIMARY Type 2 diabetes mellitus with unspecified complications EV BURGER [facility] ([id number]) Plan of Treatment: Future Appointments (+ 6 months) and Future Tests (+/- 45 days) The Plan of Treatment section includes future care activities for the patient from all [place] treatmentfacilities. This section includes future appointments and future orders which are active, pending or scheduled. Future Appointments This section includes appointments that were scheduled to occur 6 months from the date of the Encounter, up to a maximum of 20 appointments. The data comes from all [place] treatment facilities. Appointment Date/Time Appointment Type Appointme nt Facility Name Jul 12, 2024 09:15 AM AMBULATORY - NONE [place] [facility] [place] [facility] Nov 15, 2024 09:00 AM AMBULATORY - MEDICINE [facility] Encounter Notes: All associated encounter notes This section contains the clinical notes associated to the Encounter. Date/Time Encounter Note(s) Provider Source Jun 07, 2024 03:29 PM DIABETOLOGY EDUCAT ION NOTE: LOCAL TITLE: DIABETES EDU FOLLOW UP STANDARD TITLE: DIABETOLOGY EDUCATION NOTE DATE OF NOTE: JUN 07, 2024@15:29 ENTRY DATE: JUN 07, 2024@15:29:25 AUTHOR: EV BURGER EXP COSIGNER: URGENCY: STATUS: COMPLETED FOLLOW UP DIABETES EDUCATION VISIT DIABETES SELF-MANAGEMENT EDUCATION AND SUPPORT (DSMES) PROGRAM Demographics: Patient Name: RHIANNA AVILES : Oct Age: 48 Sex: MALE Race: WHITE [place] [employer] Connect (VVC) Standard Documentation VVC Clinician Resources Only: E911 (Emergency Call Relay Center): [phone] [place] [facility] Crisis Line: (6-958-795-TXVE) press #1. CHERYL Suicide Coordinator: [phone], Ext. [phone]; Back-up Ext. [phone] [place] Helper of the Day(AOD), Ethel LUNA: [phone], Ext. [phone] Introduction: Visit is being conducted by [place] [facility]. identified with 2 identifiers: Full name, Complete date of Emergency Plan: [place] confirmed and/or provided the following information in case of emergency or technology failure. PATIENT PHONE - PHONE NUMBER [CELLULAR] - Is patient phone number correct, if not, enter below: 's phone number: RHIANNA AVILES [address], [place], [address] 's present location and address for appointment: Home address above 's emergency contact name and phone number: On file reported that location is private and safe: YES Informed Consent: [place] informed of the risks and benefits of Telehealth video care. [place] has the right to refuse video services. If refuses video visit, a [id number] visit will be scheduled. verbalized consent for this video visit: YES provided consent for any other persons present for visit: Not applicable If yes, who and relationship to patient: Secure visit: Visit was locked for security and privacy: YES REASON FOR VISIT: DSMES follow up Behavior health goals set at previous visit: HEALTH GOAL #1:Physical Activity In order to meet this goal, I will: continue walking and clearing headstones at the [facility] in [place], and work with physical therapy to incorporate strength exercises into my routine. Behavioral goal 1 met: 50% of the time HEALTH GOAL #2: Monitoring In order to meet this goal, I will: continue to check my blood glucose at least twice a week. Behavioral goal 2 met: 100% of the time Clinical or Quality of Life outcome goal set at last visit: Fill out Intent to File (Form [email or web address]) on va.gov and research DBQs to submit disability claim; get back into crossfit and gym sessions with my friends. (Not yet complete) MOST RECENT LABS: HEMOGLOBIN A1C TREND Collection DT Spec HGBA1c 12/19/2023 08:17 BLOOD 9.5 H LIPID PANEL TREND No data available WEIGHT: 225 lb [102.06 kg] (12/27/2023 13:58) HEIGHT: 75 in [190.5 cm] (11/17/2023 11:02) BMI: 28.2 _ NUTRITION: MEALS: BREAKFAST: garcia, egg and cheese sandwich from [employer], or overnight oats w/ fruit LUNCH: Skips sometimes; snack pack with nuts and cheese, or salad or small sandiwch DINNER: Lean protein and a vegetable SNACKS: Nuts BEVERAGES water, coffee BENEFITS OF WEIGHT LOSS- Discussed In the last 12 months, were there times when the food for you just did not last and there was no money to buy more? No _ PHYSICAL ACTIVITY reports they usually get a bit lazy during the fall/winter months. Encouraged to find fun things to do to move the body. stated they enjoyed hiking in the fall and set a SMART goal to schedule a day to go hiking. Also shared interactive YouTube free exercise videos and encouraged Plains to talk with [employer] colleagues at work for walking meetings. _ GLUCOSE MONITORING [place] reported their blood sugar readings have been between 140-160mg/dL when they are doing what they're supposed to be doing with movement and eating pattern. Reported up in the 200's mg/dL when sedentary and eating higher carbohydrate foods. tried to go off metformin, but his A1c went from 8.1% to 9.4%. has good self-awareness of helpful habits. _ DIABETES MEDICATIONS and supplies Active Outpatient Medications (including Supplies): Active Outpatient Medications Status 1) ACCU-CHEK GUIDE (GLUCOSE) TEST STRIP USE 1 STRIP TO ACTIVE TEST BLOOD SUGARS TWICE A WEEK NEEDED DIABETES 2) ALCOHOL PREP PAD USE 1 PAD TOPICALLY TWICE A WEEK ACTIVE NEEDED DIABETES TO CLEAN SKIN FOR INJECTION ETC CLEAN FINGER WITH SOAP/WATER OR ALCOHOL SWAB AND ALLOW TO DRY BEFORE FINGERSTICK 3) LANCET,SOFTCLIX USE 1 LANCET TOPICALLY TWICE A WEEK ACTIVE NEEDED TO TEST BLOOD SUGAR Active Non-VA Medications Status Non-VA METFORMIN HCL 500MG TAB 500MG BY MOUTH TWICE ACTIVE DAILY is back taking metformin 500mg tabs, he is up to two tabs in the morning and one tab in the evening as of yesterday. denied nasuea vomiting and/or diarrhea (NVD) side effects at this time and is aware to contact prescribing provider office if there is an issue with NVD. Educated on mechanism of action for metformin and option for extended release metformin. reported they are taking a One-a-day Men's daily multivitamin for supplementation. ASSESSMENT: 48 yr old non service connected male with T2DM presented via [place] Video Connect (VVC) for DSMES follow up appointment was well groomed, with clear speech and logical thought process sitting in their kitchen. 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 Andre has creating some eating strategies around this change such as trying to excerise before the work day begins and eating a small snack of nuts and fruit for lunch. Andre admitted his glucose numbers have not been great recently. He had tried to go off of metformin to see if he could manage his diabetes with lifestyle alone. He has since restarted metformin and BGs are improved. 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 Andre shared that his oldest son (18) is at college [employer] for mechanical engineering, and his younger son (15) plays games on their computer and trying to be a Fashion[employer]ick[employer] star with filming and editing video all the time. Andre's son has a VR headset, and author shared how [employer] has a free subscription for Veterans: https://news.Labmeeting.gov/18708 7/sklo-hnpagx-qnnfdq-billy- veterans-families/ Andre said he might check it out. STRATEGIES FOR BEHAVIOR CHANGE Education plan/goals/objectives: HEALTH GOAL #1:Physical activity In order to meet this goal, I will: schedule a day to go hiking and go before the next appointment. HEALTH GOAL #2:Taking medication In order to meet this goal, I will: take my metformin as prescribed to control my blood sugar. Clinical or Quality of Life outcome baseline: Meet with a registered dietitian to talk more about food. RTC 6 months for follow up. Negotiated 12/13/2024 at 2pm FOLLOW UP APPTS: 11/15/2024 09:00 CWM/SO/PACT 7 DM type is : Type II Diabetes Length of Visit: 60 minutes /luisana/ EV BURGER, ORE CHARGER CUSTOMER SERVICE CORRESPONDENCE CLERK Signed: 06/07/2024 15:58 EV BURGER [facility] ([id number])
--- OUTSIDE RECORDS SUMMARY | 2024-12-05 07:53 | XMS_ITS | Encounter Summary ---
Author Name [facility] [place] Organization [facility] [place] Address [address] [place] [address] Care Team Providers Care Tele Marketing Executive Name Role Phone LUL GALLARDO Primary Care Provider Unavailabl e Selected Encounter This section includes the information on record at [place] for the Encounter. Date/Time Encounter Type Encounter Description Reason Provider Source January 23, 2024 10:30 AM SELF CARE MNGMENT TRAINING PHYSICAL THERAPY ICD-10-CM M54.40 Lumbago with sciatica, unspecified side ARNOLD CH Encounter Template Text not used by [place] Assessments - Encounter Diagnoses This section includes the primary and secondary diagnoses documented for the Encounter. Date/Time Primary/Secondary Diagnosis Diagnosis Name Provider Source January 23, 2024 11:08 AM PRIMARY Lumbago with sciatica, unspecified side ARNOLD CH Plan of Treatment: Future Appointments (+ 6 months) and Future Tests (+/- 45 days) The Plan of Treatment section includes future care activities for the patient from all [place] treatmentfacilities. This section includes future appointments and future orders which are active, pending or scheduled. Future Appointments This section includes appointments that were scheduled to occur 6 months from the date of the Encounter, up to a maximum of 20 appointments. The data comes from all [place] treatment facilities. Appointment Date/Time Appointment Type Appointme nt Facility Name Feb 07, 2024 09:30 AM [facility]ORY - [facility] Feb 21, 2024 10:00 AM [facility]ORY - [facility] Jun 07, 2024 02:00 PM AMBULATORY - [place]ICINE [place] [facility] [place] [facility] Jul 12, 2024 09:15 AM [facility] Social History: Smoking Status (Most current) and Tobacco Use (All prior to encounter date) This section includes the most current, and the historical, smoking and tobacco- related health factors from the [place] facility where the Encounter took place. Current Smoking Status This section includes the most current smoking, or tobacco-related health factor, from the [place] facility where the Encounter took place. Date/Time Current Smoking Status Comment Facil [facility] Nov 17, 2023 11:00 AM [place]-TOBACCO NEVER USED [facility] Encounter Notes: All associated encounter notes This section contains the clinical notes associated to the Encounter. Date/Time Encounter Note(s) Provider Source January 23, 2024 07:48 AM PHYSICAL THERAPY C ONSULT: LOCAL TITLE: PHYSICAL THERAPY CONSULT STANDARD TITLE: PHYSICAL THERAPY CONSULT DATE OF NOTE: JANUARY 23, 2024@07:48 ENTRY DATE: JANUARY 23, 2024@07:48:25 AUTHOR: ARNOLD CH COSIGNER: URGENCY: STATUS: COMPLETED Initial Evaluation date: 01/23/24 Progress Note Date: 02/23/24 Treatment #: eval Treatment time: Diagnosis:Lumbago with Sciatica, unspecified Side(ICD-10-CM M54.40) Provider:LUL GALLARDO PT Treatment Precautions: Patient identified by full name and date of Goes by Oscar SUBJECTIVE: History of Current injury: Patient states some L sided lower back pain with radiation into the L glute today. Patient notes that with prolonged sitting they will experience some knee weakness mainly on the L side. Patient states the symptoms are mainly on the L side, but have occurred on the R side at times, however this has been sporadic. Patient denies sciatica syptoms down both legs at the same time, notes it is always one side or the other. Patient notes this pain began in 2017, went to PT and it got better. Notes current excaberation began around Aug 2023/Sep 2023. Patient states the sciatica symptoms do not generally extend past the gluteal region. Patient states primary aggravating factors include sudden or quick movements. Patient states advil or movement tend to alleviate symptoms. Denies hx of major trauma or surgery to the lower back or the hips. Patient denies saddle paresthesia and denies recent unexplained changes to bowel/bladder function. Pain Current: 3-4/10 Pain Best: 0/10 Pain Worst: 6/10 Current exercise routine: runs/jogs, hikes, use rower or bike Work: [employer] Patient Goal: Improve strength to not have the pain Number of days per week with pain: 03/11 SANE report Please rate your ability to use your injured area on a 0% to 100% scale, with 0% being unable to use the injured area and 100% being normal use of injured area in your daily activity: 50% OBJECTIVE: Red flags: Recent Trauma- Age (50+)- Hx of Cancer- Fever/chills/night sweats- Unexplained weight loss- Recent infection- Immunosuppression- Night pain- Saddle anesthesia- Bowel/bladder dysfunction- LE neurological deficit- Psychosocial flags: mental health dx + entrenched/unhelpful beliefs about pain- clinically relevant catastrophization- signs of kinesiophobia- Neuro: achilles and patellar nomral 2+ - clonus Sensation: * = pain during testing ROM: Lumbar Flexion WNL Lumbar Extension WNL* central lower back Lumbar Left side bend WNL Lumbar Right side bend WNL* L glute Lumbar Left rotation WNL* central lower back Lumbar Right rotation WNL* L glute Hip ROM: Hip flexion(120): L: R: Hip Abduction(40): L: R: Hip Internal rotation(30): L: R: Hip external rotation(30): L: R: Hip Extension(20): L: R: Lumbar/Hip Special Tests: SLUMP + LLE SLR + LLE Sign of the Buttock - JENSEN + L Scour +L FADDIR + L PRERNA WILLIAM 90/90 HS LEG LENGTH JOSE ANG[facility] battery SI joint: distraction thigh thrust Compression sacral thrust Strength: Hip flexion L: 01/07 R: 01/07 Knee extension: L: 01/07 R: 01/07 Knee flexion L: 01/07 R: 01/07 Ankle DF L: 01/07 R: 01/07 Ankle INV L: 01/07 R: 01/07 Ankle EV L: 01/07 R: 01/07 Hip ER L: 12/08 R: 5/5 Hip ABD L: 4/5 R: 5/5 Hip Extension L: /5 R: /5 Glute Max: L: /5 R: /5 Palpation: Joint Mobility: slight hypomobility CPA glides L1-5, min TTP L3/4, L4/5 movement segments Directional Preference: Extension bias (+) Symptoms distal to the buttock Symptoms centralize with lumbar extension Symptoms peripheralize with lumbar flexion Flexion bias (-) Older age >50 years Imaging evidence of spinal stenosis Symptoms worsen with lumbar extension Lumbar Traction Test Cluster (identified positive variables) (-) Pain in the leg Signs of nerve root compression Peripheralization of symptoms with lumbar extension movements Positive Crossed SLR Lumbar Stenosis Test Cluster (-) Bilateral symptoms Leg pain>back pain Pain during walking/standing Pain relief upon sitting >48 years old Sacroiliac joint dysfunction Ganga Finger Test (-) (-) Trendelenburg (-) (-) INTERVENTIONS: Therapeutic Exercise: Mins: Manual therapy: Mins: Neuro re-ed: Mins: Other: Mins: Modalities: Mins: [] contraindication screen completed prior to modality [] skin intact pre/post modality Access Code: [email or web address] URL: [email or web address] Date: 01/23/2024 Prepared by: Arnold Ch Exercises - Prone Press Up On [...] weekly - 2-3 sets - 10-15 reps Patient education: Mins: 10 Discussed potential etiology of symptoms with patient including potential structures involved and how this relates to exercises prescribed and POC discussing frequency and duration of services to be provided with patient verbalizing good understanding and agreement with POC. Provided written HEP to patient with therex from today reviewing proper form sets reps and frequency and safety precautions with patient verbalizing and demonstrating good understanding in clinic. Discussed importance of cardiovascular activity aiming for 15-30mins 1-2xdaily. Discussed extension preference and what this means regarding patient symptoms and treatment plan. ASSESSMENT: Patient is a 48yo seen for physical therapy evaluation following referral for lower back pain with sciatica. PMH significant for History of Alcohol Abuse, Lumbago with sciatica, Exposure to potentially hazardous substance, Exercise induced asthma, THEODORE - Generalized anxiety disorder, Type II diabetes mellitus uncontrolled, Erectile dysfunction, Mixed hyperlipidaemia, Tinnitus. Patient presents with primary complaint of L sided lower back pain with referred symptoms into the L glute. Patient does endorse sporadic R sided lower back pain and R gluteal pain but states this does not occur often. Denies having sciatica symptoms in both legs at the same time; denies red flag symptoms like saddle paresthesia and unexplained changes to bowel/bladder function. Pain rated 0/10 at best, 3-4/10 at current, 6/10 at worst on NPRS. Primary aggravating factors include prolonged sitting, transitional movements, and quick/sudden movements. On physical assessment, patient primary symptoms in lower back reproduced with repeated lumbar flexion and R side bend/rotation, SLR and SLUMP LLE, seated compression test in flexion, KB load test. Secondary symptoms in L glute reproduced with hip flexion and IR ROM, FADDIR, Scour, JENSEN. Additional impairments that may contribute to condition include impaired abdominal and gluteal weakness, impaired LE flexibility (hip flexors, quads, hamstrings). Based on patient hx and findings of assessment, primary symptoms appear most consistent with discogenic lower back pain and secondary symptoms appear most consistent with L hip UMAIR. Patient reports these symptoms impact their ability to complete their normal daily tasks like prolonged sitting, transitional movements, and quick/sudden movements. Patient requires skilled physical therapy services in order to address these impairments ad activity limitations and to achieve patient goal of Improve strength to not have the pain . GOALS: in 4-6weeks, patient will demonstrate: consistent carryover of HEP 5/7 days per week with patient able to independently teach back 75% of exercises 2pt decrease in pain level at worst to improve patient ability to complete most symptomatic tasks 10% improvement on SANE score to improve patient ability to complete typical daily tasks decrease in total days with pain by 2 days to improve patient QOL pain free lumbar ROM - SLR LLE 1/2 grade improvement in L hip ABD MMT PLAN: Discussed POC with patient who verbalizes agreement with skilled PT services biweekly for 4 weeks focusing on improving lumbar ROM, progressive abdominal [...] []Estim/Tens []Mechanical traction []K-tape [] Biofreeze /es/ ARNOLD CH PT, DPT PHYSICAL THERAPIST Signed: 01/23/2024 11:09 ARNOLD CHFIELD
[2024-12-05 08:01] VITALS: BP 126/86; PULSE 87; RESP 18; TEMP 36.3; O2SAT 98; BMI 32.2
--- NOTE | 2024-12-05 08:01 | A.OFFPC_ITS ---
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 Required: No Accompanied by: Self / Same As Patient Allergies No Known Allergies Allergy (Mild, Verified 12/05/24 08:09) N/A Medication List - Last Reconciled 12/05/24 by Reji Dior PA-C albuterol sulfate 90 mcg/actuation 1 inh inhalation QID PRN 30 days blood pressure monitor As directed lisinopril 5 mg PO DAILY 90 days metformin 500 mg PO TID 30 days simvastatin 10 mg PO DAILY 90 days Tobacco use date assessed: 12/05/24 Dental Screening Dental Screen Date: 12/05/24 Did you have a dental visit in the last 12 months?: No Did you have a dental problem in the last 6 months where you did not have access to dental care?: No Was dental information given to patient?: Patient has dentist HPI PE HPI Details Patient is a 49 year male here today for a routine annual physical. Patient has a past medical history significant for type 2 diabetes, asthma, hyperlipidemia, and history of alcohol use disorder Type 2 diabetes: Today's when A1c elevated at 10.0 from 8.1 Continues on metformin 500 b.i.d. recent labs showing very elevated fasting blood sugar. He has received a glucometer from the MD. He has spoken with a diabetic liz morrissey whom recommended getting a THEODORE test and start using a glucometer. PLAN: Will increase his metformin dose to a 1000 b.i.d. .. Hyperlipidemia: Most recent lipid panel showing elevated total cholesterol triglycerides.. Patient continues on simvastatin 10 mg. Will recheck fasting lipid panel to ensure property LDL .. Hypertension: Blood pressure much elevated today in office. He reports that home blood pressures are 120s to 130 systolic. Continue current dose of lisinopril. Colon cancer screening: Goes to [facility]- did FIT testing . Considering colonoscopy Vaccines: Up-to-date with COVID vaccine, Laboratory Tests 03/03/24 06/04/24 06/06/24 07:30 09:18 09:21 Fasting Glucose 217 H 283 H Hgb A1c (Clinic) 10.0 H Triglycerides 433 H Cholesterol 281 H [facility] Surgical History S/P repair of inguinal hernia Social History (Updated 12/05/24 @ 08:11 by Reji Dior PA-C) Housing: House Alcohol intake: current Alcohol intake frequency: a few times a month Patient Tobacco Use Status: Never used Tobacco e-Cigarette/Vaping Use: Never Used Second Hand Smoke Exposure: No service: Yes ([employer]) Current occupational status: employed 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 1. Little interest or pleasure in doing things: not at all 2. Feeling down, depressed, or hopeless: not at all 3. Trouble falling or staying asleep, or sleeping too much: not at all 4. Feeling tired or having little energy: not at all 5. Poor appetite or overeating: not at all 6. Feeling bad about yourself - or that you are a failure or have let yourself or your family down: not at all 7. Trouble concentrating on things, such as reading the newspaper or watching television: not at all 8. Moving or speaking so slowly that other people could have noticed. Or the opposite - being so fidgety or restless that you have been moving around a lot more than usual: not at all 9. Thoughts that you would be better off or of hurting yourself in some way: not at all Total score: 0 Depression Screening Interpretation: Negative Depression Screening Done: Yes 26011 - PHQ-9 Billing: Yes Source: Developed by Drs. Hema Olea, Vanita Blake, Devon Magdaleno and colleagues, with an educational waylon from [employer]. Thrive Questionnaire Date Thrive assessed: 12/05/24 I am a: Patient What is your living situation today?: I have a steady place to live Within the past 12 months, did the food you bought not last and you didn't have the money to get more?: Never true Within the past 12 months, did you worry whether your food would run out before you got money to buy more?: Never true Do you have trouble paying for medicines?: No Do you have trouble getting transportation to medical appointments?: No Do you have trouble paying your heating and electricity bill?: No Do you have trouble taking care of your child, family member or friend?: No Do you have trouble with day-to-day activities such as bathing, preparing meals, shopping, managing finances, etc.?: No Are you currently unemployed and looking for a job?: No Are you interested in more education?: No Please select the resources that you would like help with: None Currently or been in a relationship where the following occur: No concerns reported THRIVE Score: 0 AUDIT C Alcohol Use Questionnaire (AUDIT-C) 1. How often do you have a drink containing alcohol?: 2-4 times a month 2. How many drinks containing alcohol do you have on a typical day when you are drinking?: 1 or 2 3. How often do you have six or more drinks on one occasion?: Never Total Score: 2 THEODORE-7 AMB Questionnaire THEODORE-7 Date THEODORE - 7 assessed: 12/05/24 Feeling nervous, anxious, or on edge: 0 = Not at all Not being able to stop or control worryin = Not at all Worrying too much about different things: 0 = Not at all Trouble relaxin = Not at all Being so restless that it is hard to sit still: 0 = Not at all Becoming easily annoyed or irritable: 0 = Not at all Feeling afraid as if something awful might happen: 0 = Not at all Total THEODORE-7 score (0-4 normal; 5-9 mild; 10-14 moderate; 15-21 severe): 0 Source: Developed by Drs. Hema Olea, Vanita Blake, Devon Magdaleno and colleagues, with an educational waylon from [employer]. THEODORE-7 Assessment Billing THEODORE-7 Assessment Tool: THEODORE-7 Assessment 33745 Review of Systems Const Denies body aches, Denies chills, Denies excessive sweating, Denies fatigue, Denies fever(s) and Denies headache(s) Eyes Denies blurry vision ENT Denies dysphagia, Denies vertigo, Denies dizziness, Denies headache(s), Denies hearing loss and Denies tinnitus Card Denies chest pain, Denies chest pain with activity, Denies syncope, Denies irregular heart rhythm and Denies dyspnea Resp Denies chest congestion, Denies cough, Denies hemoptysis, Denies dyspnea and Denies wheezing GI Denies abdominal pain, Denies melena, Denies hematochezia, Denies coffee ground emesis, Denies dysphagia, Denies diarrhea, Denies nausea and Denies vomiting Denies difficulty urinating, Denies dysuria, Denies urinary frequency, Denies urinary hesitancy and Denies urinary urgency Musc Denies arthralgias, Denies limited range of motion, Denies muscle cramps and Denies muscle weakness Skin/Breast Denies rash and Denies skin ulcer Neuro Denies Abnormal speech present, Denies confusion, Denies vertigo, Denies dizziness, Denies syncope, Denies headache(s), Denies memory loss and Denies seizure-like activity Psych Denies anxiety, Denies confusion, Denies depression, Denies memory loss, Denies panic attacks and Denies paranoia Endo Denies excessive sweating, Denies fatigue, Denies flushing, Denies polydipsia and Denies polyuria Aller/Immun Denies wheezing Physical exam (Primary Care) Vital Signs: Last Vital Signs Temp 97.3 F 12/05/24 08:01 Pulse 87 12/05/24 08:01 Resp 18 12/05/24 08:01 BP 126/86 12/05/24 08:01 Pulse Ox 98 12/05/24 08:01 BMI result Body Mass Index 32.2 Tobacco/Smoking Status: Tobacco use Status Tobacco use date assessed 12/05/24 12/05/24 08:07 Patient Tobacco Use Status Never used Tobacco 12/05/24 08:11 e-Cigarette/Vaping Use Never Used 12/05/24 08:11 PHQ-9: PHQ-9 Score PHQ-9: Total score 0 12/05/24 08:38 Depression Screening Interpretation: Negative Thrive Assessment: Date of Thrive Assessment Date Thrive assessed 12/05/24 12/05/24 08:07 Currently or been in a relationship where the following occur: No concerns reported Const General: cooperative, comfortable, no acute distress, alert and awake; No confusion Orientation/consciousness: oriented to person, oriented to place, patient oriented x3 and No confusion HENMT Head: Yes normocephalic Ears: external ears normal and TM's normal bilaterally Face and sinus: No sinus tenderness Mouth: Normal oral and palatal mucosa present and tongue normal Teeth and gingiva: dentition normal and gingiva normal Throat: Yes posterior oropharynx normal, Yes tonsils normal and Yes uvula midline Eyes Conjunctivae: conjunctivae normal Sclerae: sclerae normal Pupils: Equal, round and reactive pupils present EOM: EOMs intact bilaterally Direct Ophthalmoscopy: No no photophobia Neck Neck: Yes no lymphadenopathy, No tender and Yes no JVD Thyroid: Thyroid normal Carotids: no bruits Chest Chest palpation & inspection: no tenderness Resp Effort & Inspection: normal respiratory effort, no audible wheezes, not labored and no stridor Auscultation: no crackles, no rales, no rhonchi and no wheezes Cardio Jugular venous distension: no JVD Rate: regular rate, not bradycardic and not tachycardic Rhythm: regular rhythm Bruits: no carotid bruits Peripheral pulses: Peripheral pulses 2+ throughout GI Inspection: Yes normal to inspection, No abdominal wall ecchymosis and No visible herniation Palpation (GI): Soft to palpation, nontender, no guarding, not rigid and No hepatosplenomegaly present Auscultation: normoactive bowel sounds General: Yes no CVA tenderness Back/Spine/Pelvis Back: no CVA tenderness and No back tenderness Cervical Spine: cervical ROM normal Thoracic/Lumbar Spine: thoracic and lumbar spine normal to inspection, straight leg raise negative bilaterally, No thoraco-lumbar ROM limited and No lumbar spinal tenderness Skin Lesions: no lesions Rashes: no rashes Wounds: no wounds Neuro General: oriented to person, oriented to place, patient oriented x3, CN's II-XI intact bilaterally and No confusion Cranial nerves: Yes Equal, round and reactive pupils present and Yes Normal accommodation reflex present Cognition (Neuro): normal cognition Speech: No Abnormal speech present Gait exam (Neuro): Normal gait present Motor exam (neuro): 5/5 motor strength present throughout Extrem Right upper extremity: full ROM; no cyanosis Left upper extremity: full ROM; no cyanosis Right lower extremity: no edema Left lower extremity: no edema Psych Appearance: grossly normal Mental Status: mental status grossly normal Affect: normal affect Attitude: cooperative Thought process: Normal thought process present Results AMB Hemoglobin A1c AMB Hemoglobin A1c 10.1 % Last Edit by Dyan Christianson CMA on 12/05/24 08:39 Results Reviewed Results Reviewed: Laboratory Last Values Hgb A1c (Clinic) 10.1 % (4.0-6.0) H 12/05/24 08:23 Coding Level of Care Code Est Pt Prev Care 40-64y(52713) Diagnoses Annual physical exam Z00.00 Type 2 diabetes mellitus without complication, without long-term current use of insulin E11.9 Diabetes mellitus complication status: without complication Diabetes mellitus custodial insulin use: without custodial use Primary hypertension I10 Hypertension type: primary hypertension Mixed hyperlipidemia E78.2 Hyperlipidemia type: mixed hyperlipidemia Colon cancer screening Z12.11 Additional Codes THEODORE-7 Assessment Billing - THEODORE-7 Assessment Tool: THEODORE-7 Assessment 67334 ([id number]) PHQ-9 - 98907 - PHQ-9 Billing: Yes ([id number]) Assessment & Plan Assessment & Plan (1) Annual physical exam: Code(s): Z00.00 - Encounter for general adult medical examination without abnormal findings Category: Medical Plan: As per HPI (2) DMII (diabetes mellitus, type 2): Code(s): E11.9 - Type 2 diabetes mellitus without complications Category: Medical Qualifiers: Diabetes mellitus complication status: without complication Diabetes mellitus custodial insulin use: without emt intermediate use Qualified Code(s): E11.9 - Type 2 diabetes mellitus without complications Plan: Patient's type 2 diabetes not well controlled. Have noted weight gain. since last office visit. Today's A1c at 10.1 from 10 He is not interested in insulin therapy at this time. Will increase metformin to a a 1000 mg b.i.d., we did discuss the possibility of needing insulin daily or trying a GLP 1 to gain some glycemic control.. He will work on lifestyle modification. Goal A1c is to be below 7.0 (3) HTN (hypertension): Code(s): I10 - Essential (primary) hypertension Category: Medical Qualifiers: Hypertension type: primary hypertension Qualified Code(s): I10 - Essential (primary) hypertension Plan: Patient's blood pressure today in office acceptable. He reports that home blood pressures are stable. He continues with lisinopril 5 mg daily. Goal blood pressures to remain below 140/90 (4) HLD (hyperlipidemia): Code(s): E78.5 - Hyperlipidemia, unspecified Category: Medical Qualifiers: Hyperlipidemia type: mixed hyperlipidemia Qualified Code(s): E78.2 - Mixed hyperlipidemia Plan: Patient's most recent lipid panel showing elevated total cholesterol and trigl ycerides. He continues on simvastatin 10 mg. Will recheck lipid panel to ensure appropriate total cholesterol and LDL. Will consider increasing potency statin if LDL above 100. He did admit to dietary indiscretion and will try to work on dietary modifications. Goal LDL is to be below 100 (5) Colon cancer screening: Code(s): Z12.11 - Encounter for screening for malignant neoplasm of colon Category: Medical Plan: Willing to do colonoscopy Orders: Orders Comprehensive Badin. Panel Fast Today I10 - Essential (primary) hypertension Complete Blood Count no Diff Today I10 - Essential (primary) hypertension Prostate Specific Antigen Scr Today E78.2 - Mixed hyperlipidemia, Z12.5 - Encounter for screening for malignant neoplasm of prostate Microalbumin, Random (w Creat) Today I10 - Essential (primary) hypertension Lipid Panel Today E78.2 - Mixed hyperlipidemia AMB Hemoglobin A1c Today E11.9 - Type 2 diabetes mellitus without complications Referrals Gastroenterology Referral Z12.11 - Encounter for screening for malignant neoplasm of colon Medications: Changed From metformin 500 mg PO TID 30 days 90 tabs 3RF E11.9 - Type 2 diabetes mellitus without complications To metformin 1,000 mg (2 x 500 mg) PO BID 120 tabs 3RF 30 days E11.9 - Type 2 diabetes mellitus without complications
== END 2024-12-05 08:41 | disposition home or self-care (01) ==
PROVIDERS: PCP Physician Assistant; Visit Provider Physician Assistant
DX: Z00.00 Encounter for general adult medical examination without abnormal findings (principal); E11.9 Type 2 diabetes mellitus without complications; I10 Essential (primary) hypertension; E78.2 Mixed hyperlipidemia; Z12.11 Encounter for screening for malignant neoplasm of colon

== ENCOUNTER → 2024-12-05 07:48 | Outpatient (BNVA) | payer OTHER, SELFPAY | PROVIDERS: PCP Physician Assistant; Visit Provider Physician Assistant | DX: Z00.00 Encounter for general adult medical examination without abnormal findings (principal); E11.9 Type 2 diabetes mellitus without complications; E78.2 Mixed hyperlipidemia; I10 Essential (primary) hypertension | CPT/HCPCS: 83036; 96127 ==

== ENCOUNTER 2025-05-09 08:45 | Outpatient (REF) | payer OTHER, SELFPAY ==
[2025-05-09 09:38] LABS: MANUAL DIFF FLAG NO
[2025-05-09 10:30] LABS: Hematocrit 45.6 % (42.0-52.0); Hemoglobin 16.4 g/dl (14.0-18.0); Imm Gran Abs Auto 0.01 X10*3/uL (0.00-0.03); Imm Gran Pct Auto 0.2 % (0.0-0.4); Lymphocytes Absolute Auto 1.3 X10*3/uL (1.2-4.9); Mean Corpuscular HGB Conc 36.0 g/dl (31.0-36.0); Mean Corpuscular Hemoglobin 31.8 pg (27.0-33.0); Mean Corpuscular Volume 88.4 fL (80.0-98.0); NRBC Abs Auto 0.000 X10*3/uL (0.0-0.012); NRBC Pct Auto 0.0 /100WBC (0.0-0.2); Platelet Count 267 X10*3/uL (160-400); Red Blood Count 5.16 X10*6/uL (4.60-5.80); White Blood Count 4.9 X10*3/uL (4.8-10.8)
[2025-05-09 11:19] LABS: Alanine Aminotransferase 61 U/L (0-40); Albumin Level 4.6 g/dL (3.5-5.0); Alkaline Phosphatase 121 U/L (39-117); Anion Gap 18 (12-20); Aspartate Amino Transferase 46 U/L (5-37); Blood Urea Nitrogen 10 mg/dL (9-16); Calcium 9.0 mg/dL (8.4-10.2); Carbon Dioxide 24 mmol/L (22-29); Chloride 98 mmol/L (96-108); Estimated Glomerular Filt Rate > 60; Potassium 3.9 mmol/L (3.3-5.1); Sodium 136 mmol/L (135-145); Total Protein 7.2 g/dL (6.5-8.0)
== END 2025-05-09 08:46 | disposition home or self-care (01) ==
LOC: HO.LAB 08:45
PROVIDERS: PCP Physician Assistant; Visit Provider Nurse Practitioner
DX: Z01.818 Encounter for other preprocedural examination (principal); J45.20 Mild intermittent asthma, uncomplicated; Z87.898 Personal history of other specified conditions; Z12.11 Encounter for screening for malignant neoplasm of colon
CPT/HCPCS: 36415; 80053; 85025

== ENCOUNTER 2025-05-09 08:45 | Outpatient (AMB) | payer OTHER, SELFPAY ==
[2025-05-09 08:47] VITALS: BP 131/87; PULSE 93; BMI 31.7
--- NOTE | 2025-05-09 08:47 | A.OFFVIS_ITS ---
Vital Signs 05/09/25 08:47 Height 6 ft 1 in Weight 240 lb 4.862 oz BMI 31.7 BP 131/87 Blood Pressure Location Lt brachial Position Sitting Pulse 93 Intake Visit Reasons: Colonoscopy Screening Intake Note: New patient in office today for colonoscopy screening. CC: Patient denies having any GI symptoms or concerns today. [employer] Required: No Accompanied by: Self / Same As Patient Allergies No Known Allergies Allergy (Mild, Verified 05/09/25 08:50) N/A HPI HPI Colonoscopy Screening: Details: 49-year-old male here for preprocedural meeting to discuss a screening colonoscopy. He is referred by Reji Dior. PMX Asthma Hypertension High cholesterol History of alcohol use disorder Lumbar degenerative disc disease with sciatica Shoulder tendinopathy * SURGICAL HISTORY Inguinal hernia repair * ALLERGIES: NKDA * Well LABS: Needs refresh TODAY'S VISIT This is his 1st colonoscopy. There are no bowel or upper GI problems. His asthma is well controlled and he denies any cardiac problems. There are no prior problems with anesthesia or sedation. No infectious disease problems. FHX: There is no known crc or polyps. 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- [employer] Cognitive needs: No Hearing needs: No Vision needs: No Review of Systems Const Denies fatigue, Denies fever(s), Denies night sweats, Denies poor appetite and Denies weight loss ENT Reports Normal hearing present, Denies dental pain, Denies dysphagia, Denies he aring loss, Denies mouth pain, Denies odynophagia, Denies throat swelling, Denies tongue swelling and Reports other (Dentition adequate) Card Reports no additional complaints Resp Reports no additional complaints GI Details: Denies abdominal pain, Denies melena, Denies bloating, Denies hematochezia, Denies constipation, Denies GI cramping, Denies dysphagia, Denies excessive flatus, Denies early satiety, Denies heartburn, Denies diarrhea, Reports loose stools (Occasional related to metformin), Denies nausea, Denies odynophagia, Denies vomiting and Denies hematemesis Musc Reports back pain, Reports myalgias and Reports arthralgias Skin/Breast Denies pruritus, Denies lesions, Denies rash and Denies jaundice Neuro Reports Normal hearing present and Denies Abnormal speech present Endo Denies fatigue Aller/Immun Denies throat swelling and Denies tongue swelling Physical Exam Vital Signs: Last Vital Signs Pulse 93 05/09/25 08:47 BP 131/87 05/09/25 08:47 BMI result Body Mass Index 31.7 Const General: cooperative, no acute distress, well developed and well groomed Nutritional Appearance: well nourished and obese centrally obese Orientation/consciousness: oriented to person, oriented to place and oriented to time Limitations: No language barrier HEENT Head: Yes normocephalic and Yes atraumatic Eyes General: appearance normal, both eyes and all related structures Pupils: Equal, round and reactive pupils present Neck Neck: Yes normal visual inspection and Yes no lymphadenopathy Thyroid: Thyroid normal Resp Effort & Inspection: normal respiratory effort and able to speak in complete sentences Auscultation: clear to auscultation bilaterally Cardio Rate: regular rate Rhythm: regular rhythm Heart sounds: Normal, physiologic split S2 sound present Peripheral pulses: radial pulses present and posterior tibial pulses present GI Inspection: No distended, No Abdominal panniculus present and Yes obesity Palpation (GI): Soft to palpation, nontender, no guarding, not rigid and No hepatosplenomegaly present Percussion: Yes normal to percussion Auscultation: normal bowel sounds Rectal Exam - Male: Yes deferred Skin General skin exam: no rashes or lesions noted, turgor normal, skin not dry, no jaundice, No spider nevi and no striae Rashes: no rashes Nails: normal Neuro General: oriented to person, oriented to place and oriented to time Cranial nerves: Yes Equal, round and reactive pupils present and Yes Normal hearing present Speech: No Abnormal speech present Extrem General: Yes normal to inspection, No clubbing, No cyanosis and No edema Psych Appearance: grossly normal and well kempt Mental Status: mental status grossly normal Speech and movement: Normal speech and movement present Affect: normal affect Attitude: cooperative Thought process: Normal thought process present and not confabulating Thought content: Normal thought content present Insight: Good insight present (Psych) Judgement: Good judgement present (Psych) Assessment & Plan Assessment & Plan (1) Asthma: Code(s): J45.909 - Unspecified asthma, uncomplicated Category: Medical Qualifiers: Asthma severity: mild Asthma persistence: intermittent Asthma complication type: uncomplicated Qualified Code(s): J45.20 - Mild intermittent asthma, uncomplicated (2) History of alcohol use disorder: Code(s): Z87.898 - Personal history of other specified conditions Category: Medical (3) Pre-op examination: Code(s): Z01.818 - Encounter for other preprocedural examination Category: Medical Plan This is his 1st colonoscopy. There are no bowel or upper GI problems. His asthma is well controlled and he denies any cardiac problems. There are no prior problems with anesthesia or sedation. No infectious disease problems. FHX: There is no known crc or polyps. Orders: Orders Colonoscopy - GI Use Only Today Z01.818 - Encounter for other preprocedural examination Comprehensive Met. Panel Today Z01.818 - Encounter for other preprocedural examination Complete Blood Count Auto Diff Today Z01.818 - Encounter for other preprocedural examination Medications: New peg 3350-electrolytes 236-22.74-6.74 -5.86 gram (Golytely) until fecal effluent is clear; do not exceed a total volume of 2,000 mL 240 mL PO Q10M 4,000 mL 0RF 1 day Z12.11 - Encounter for screening for malignant neoplasm of colon bisacodyl (Dulcolax (bisacodyl)) 10 mg (2 x 5 mg) PO BEDTIME 4 tabs 0RF 2 days Coding Level of Care Code New Pt Level 3 (44446) Diagnoses Mild intermittent asthma without complication J45.20 Asthma severity: mild Asthma persistence: intermittent Asthma complication type: uncomplicated History of alcohol use disorder Z87.898 Pre-op examination Z01.818
== END 2025-05-09 09:18 | disposition home or self-care (01) ==
LOC: HO.HGI 08:46
PROVIDERS: PCP Physician Assistant; Visit Provider Nurse Practitioner
DX: Z01.818 Encounter for other preprocedural examination (principal); Z12.11 Encounter for screening for malignant neoplasm of colon; J45.20 Mild intermittent asthma, uncomplicated; F10.90 Alcohol use, unspecified, uncomplicated
CPT/HCPCS: S0285

== ENCOUNTER 2025-06-24 06:47 | Day surgery (SDC) | payer OTHER, SELFPAY ==
[2025-06-24 07:00] VITALS: BMI 30.4
[2025-06-24 07:15] VITALS: BP 141/94; PULSE 93; RESP 16; TEMP 36.4; O2SAT 95
[2025-06-24 07:15] LABS: Glucose, Whole Blood 256 mg/dL (60-115)
[2025-06-24] MEDS: Lactated Ringers 1,000 ML 100 ML IVCONT (07:16)
--- NOTE | 2025-06-24 07:57 | HO.ANESPROP2 ---
Documented by User: Sandra Wilson NP 06/20/25 09:46 HPI - Anesthesia Eval Consult details Narrative: 49yo M for Colon[facility] Active Problems Active Problems: All Active Problems Pre-op examination (Acute) Tendinopathy of right shoulder (Acute) Sciatica (Acute) History of alcohol use disorder (Acute) Asthma (Acute) DMII (diabetes mellitus, type 2) (Acute) HTN (hypertension) (Acute) HLD (hyperlipidemia) (Acute) Past Medical History Medical History Colon cancer screening Annual physical exam Family History Family History Maternal Aunt Cancer Surgical History Surgical History S/P repair of inguinal hernia Social History Social History Housing: House Alcohol intake: current Alcohol intake frequency: a few times a month Patient Tobacco Use Status: Never used Tobacco e-Cigarette/Vaping Use: Never Used Second Hand Smoke Exposure: No Use of substances other than those prescribed or required for medical reasons: No Advance Directives: No Advance Directives Information Provided: Yes service: Yes ([employer]) Current occupational status: employed 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- [employer] Cognitive needs: No Hearing needs: No Vision needs: No Meds Allergies Allergy/AdvReac Type Severity Reaction Status Date / Time No Known Allergies Allergy Mild N/A Verified 05/09/25 08:50 Assessment and Plan Assessment Anesthesia Assessment: Chart Reviewed Documented by User: Chaya Martin DO 06/24/25 07:59 PMF Past Medical History Medical History Colon cancer screening Annual physical exam Family History Family History Maternal Aunt Cancer Family history of problems with anesthesia: No Surgical History Surgical History S/P repair of inguinal hernia History of Problems with Anesthesia: No Social History Social History Housing: House Alcohol intake: current Alcohol intake frequency: a few times a month Patient Tobacco Use Status: Never used Tobacco e-Cigarette/Vaping Use: Never Used Second Hand Smoke Exposure: No Use of substances other than those prescribed or required for medical reasons: No Advance Directives: No Advance Directives Information Provided: Yes service: Yes ([employer]) Current occupational status: employed 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- [employer] Cognitive needs: No Hearing needs: No Vision needs: No Meds Allergies Allergy/AdvReac Type Severity Reaction Status Date / Time No Known Allergies Allergy Mild N/A Verified 05/09/25 08:50 Exam Exam Date and Time: 06/24/25 0757 Height,Weight and Vital Signs: Height 6 ft 2 in Weight 107.5 kg Vital Signs Temperature 97.6 F 06/24/25 07:15 Pulse Rate 93 06/24/25 07:15 Respiratory Rate 16 06/24/25 07:15 Blood Pressure 141/94 H 06/24/25 07:15 Pulse Oximetry 95 06/24/25 07:15 Oxygen Delivery Method Room Air 06/24/25 07:15 Temperature 97.6 F 06/24/25 07:15 Pulse Rate 93 06/24/25 07:15 Respiratory Rate 16 06/24/25 07:15 Blood Pressure 141/94 H 06/24/25 07:15 Pulse Oximetry 95 06/24/25 07:15 Oxygen Delivery Method Room Air 06/24/25 07:15 Airway Mallampati Class: II TM Dist: >3cm Neck ROM: Full Loose/Missing/Broken Teeth: No (patient denies any loose or broken teeth) Heart: S1S2 Lungs: CTAB Assessment and Plan Assessment Anesthesia Assessment: Anesthesia Plan Discussed and Chart Reviewed Final Anesthetic Review Family History of Problems with Anesthesia: No History of Problems with Anesthesia: No NPO: Yes ASA Class: II Final Preanesthetic Review: No Changes in Pt Med Stat, Meds/Allgs Chart Reviewed, Consent Obtained/Reviewed and Anes Risks/Benef Reviewed Patient Risk: Low Procedure Risk: Low Anesthetic Plan Anesthetic Plan: MAC: and Agree w/ Assess. and Plan Disposition: Standard PACU
--- NOTE | 2025-06-24 08:09 | MHC.SHP ---
Pre-Procedural Eval Section A - 24 Hr Update-Section A only Date of Service: 06/24/25 Section B - Complete if H&P > 30 days Chief Complaint: screening Details of Present Illness: 49-year-old male here for screening colonoscopy. Denies any GI complaints. He has no significant family history of colon cancer Relevant Social History: None Present Medications: see Short Stay Collaborative assessment Medical History: Significant History (Diabetes, hypertension, back pain, asthma, history of alcohol use) History of Previous Operations: Relevant previous surgery/procedure and date(s) Allergies: Allergies Allergy/AdvReac Type Severity Reaction Status Date / Time No Known Allergies Allergy Mild N/A Verified 05/09/25 08:50 Review of Systems Sugical H&P ROS: Negative: Constitution, Cardiovascular and Gastrointestinal Plan Diagnosis/Plan: Unchanged I have reviewed the history and physical and performed a pertinent physical examination on my patient. No changes have occurred unless specified. Time Spent With Patient Time: Total time managing care of this patient today ____ minutes.
[2025-06-24 08:46] VITALS: BP 104/71; PULSE 80; RESP 21; TEMP 36.9; O2SAT 95
--- NOTE | 2025-06-24 08:46 | P.OP_ITS ---
Operative Note Operative Note Date of Service: 06/24/25 Narrative: Preop diagnosis: Colon cancer screening Postop diagnosis: Normal colonoscopy findings Procedure: Colonoscopy Surgeon: Pedrito Cordova MD The patient is a 49-year-old male here for his 1st screening colonoscopy. He understood the technique of the planned procedure as well as the risks, benefits, and alternatives. The patient was brought to the operating room and placed in left lateral decubitus position under monitored anesthesia care. A surgical time-out was done. A full digital rectal exam was done and this did not reveal any significant anal lesions. The tip of the Olympus colonoscope was gently in troduced through the anal orifice advanced with insufflation all the way to the cecum. The cecum was intubated. The cecum was identified by visualization of the ileocecal valve as well as the appendiceal orifice. The cecal mucosa was unremarkable. The scope was gradually withdrawn with careful examination of the entire colonic mucosa being done with scope withdrawal. The patient had adequate bowel prep so it was unlikely that any lesion may have been missed. The rectum was reached and there were no lesions seen. The anal canal was unremarkable. The scope was then withdrawn completely with desufflation The patient tolerated the procedure well. There were no immediate complications. He falls at average risk for colon cancer so his next colonoscopy for screening may be in the next 10 years.
[2025-06-24 09:01] VITALS: BP 124/88; PULSE 94; RESP 16; TEMP 36.9; O2SAT 96
== END 2025-06-24 09:27 | disposition home or self-care (01) ==
PROVIDERS: PCP Physician Assistant; Visit Provider Surgery
PROC: 0DJD8ZZ Inspection of Lower Intestinal Tract, Via Natural or Artificial Opening Endoscopic (ICD-10-PCS; CPT 45378; principal; 2025-06-24 08:20)
DX: Z12.11 Encounter for screening for malignant neoplasm of colon (principal); I10 Essential (primary) hypertension; E78.00 Pure hypercholesterolemia, unspecified; J45.20 Mild intermittent asthma, uncomplicated; E11.9 Type 2 diabetes mellitus without complications; M54.40 Lumbago with sciatica, unspecified side; F10.11 Alcohol abuse, in remission; Z98.890 Other specified postprocedural states
CPT/HCPCS: 45378; 82947; J2003; J2704

== ENCOUNTER → 2025-06-24 06:47 | Outpatient (BNV) | payer OTHER, SELFPAY | PROVIDERS: PCP Physician Assistant; Visit Provider Surgery | DX: Z12.11 Encounter for screening for malignant neoplasm of colon (principal) | CPT/HCPCS: 45378 ==